=== PATIENT | male | born 1970 | race African-American/Black ===

== ENCOUNTER 2019-06-30 23:55 | Inpatient (IN) | payer OTHER ==
[2019-07-01 00:22] LABS: Hemoglobin 11.1 g/dL (14.0-18.0); Mean Corpuscular HGB CONC 32.8 g/dL (32.0-36.0); Mean Corpuscular Hemoglobin 30.7 pg (27.0-31.0); Mean Corpuscular Volume 93.8 fL (78.0-98.0); Mean Platelet Volume 8.7 fL (7.4-10.4); Platelet Count 244 thou/uL (130-400); RBC Distribution Width 11.6 % (11.5-14.5); Red Blood Cell (RBC) Count 3.62 mill/uL (4.70-6.10); White Blood Cell (WBC) Count 23.1 thou/uL (4.8-10.8)
[2019-07-01 00:30] LABS: INR-International Normal Ratio 1.1; Prothrombin Time 14.2 SEC (12.0-14.7)
[2019-07-01 00:36] LABS: PTT 22.5 SEC (22.9-36.1)
[2019-07-01 00:39] LABS: Band 7 % (5-11); Lymphocytes 14 % (21-51); MDiff Complete? YES; Monocytes 8 % (0-10); Neutrophil 71 % (42-75)
[2019-07-01 00:44] LABS: ALT (SGPT) 142 U/L (8-55); AST (SGOT) 111 U/L (5-34); Albumin 3.2 g/dL (3.5-5.0); Alkaline Phosphatase 277 U/L (40-150); Anion Gap 17 mmol/L (10-20); BUN (Urea Nitrogen) 22 mg/dL (8.9-20.6); Bilirubin, Total 8.1 mg/dL (0.2-1.2); Calc. Creatinine Clearance 0 mL/min (70-130); Calcium 8.8 mg/dL (7.8-10.44); Carbon Dioxide 19 mmol/L (22-29); Chloride 104 mmol/L (98-107); Estimated GFR-MDRD 57; Globulin 2.8 g/dL (2.4-3.5); Glucose 153 mg/dL (70-105); Potassium 3.6 mmol/L (3.5-5.1); Sodium 136 mmol/L (136-145)
[2019-07-01] MEDS ORDERED: Ondansetron PF 4 MG/2 ML Vial IVP PRN (04:19)
[2019-07-01] MEDS ORDERED: Sodium Chloride 0.9% 1,000 ML IV SCH ×2 (04:19→20:15)
[2019-07-01] MEDS ORDERED: Ondansetron ODT 4 MG TAB PO PRN (04:19)
[2019-07-01 04:34] VITALS: BMI 18.5
[2019-07-01] MEDS: HYDROcodone/Acetaminophen 5/325 mg Tablet PO PRN (04:53)
[2019-07-01] MEDS: Nicotine 14 MG PATCH TD SCH (04:55)
[2019-07-01] MEDS: Piperacillin/Tazobactam 3.375 GM in Sodium Chloride 0.9% 100 ML IVPB SCH ×2 (04:55→12:34)
--- NOTE | 2019-07-01 05:12 | HP ---
PRIMARY CARE DOCTOR: The patient currently does not have a primary care doctor. CHIEF COMPLAINT: Rectal bleeding. HISTORY OF PRESENT ILLNESS: Mr. Chamberlain is a pleasant 48-year-old gentleman, who has no known past medical history. He says that he has been having pain in his rectal area for the past 7 to 8 months. He says he notices it more when he has a bowel movement. He also noted just on a few occasions he had some bright red blood per rectum. However, on today, he says that he had a bowel movement and then started bleeding heavily, he says, from his rectum. He also noted a couple of clots. This was concerning for him. Therefore, he went to the [facility] in [place]. There, they did a rectal exam and felt a mass, and he was transferred here for further evaluation. The patient denies any fevers or chills. He says that he has vomited off and on, but denies any hematemesis. He occasionally will have some diarrhea, and off and on will have some abdominal pain, but this started just about 2 to 3 days ago, and it is primarily in the mid to lower abdomen, and it is dull, and it does not seem to be precipitated by anything in particular. The patient was evaluated here and was found to have an elevated white blood cell count. His hemoglobin was slightly low at 11.1, and it was noted that his liver tests were elevated, and he is being admitted. REVIEW OF SYSTEMS: CONSTITUTIONAL: He denies any fevers or chills. No night sweats. No weight loss. HEENT: He denies any headaches. No dizziness. No visual changes. No sore throat. No rhinorrhea, neck pain. No adenopathy. PULMONARY: No hemoptysis. No cough. No wheezing. CARDIOVASCULAR: He denies any chest pain. No shortness of breath. No PND. No orthopnea. GASTROINTESTINAL: As the history of present illness. GENITOURINARY: No urinary frequency or hematuria. No hesitancy. MUSCULOSKELETAL: No muscle pains, weakness, or joint pains. NEUROLOGIC: No focal weakness or numbness. No seizures. PSYCHIATRIC: No symptoms of anxiety or depression. SKIN AND INTEGUMENT: No skin changes. No rash. PAST MEDICAL HISTORY: Negative. PAST SURGICAL HISTORY: He said he had an eye surgery. ALLERGIES: NO KNOWN DRUG ALLERGIES. SOCIAL HISTORY: He is . He smokes about half a pack of cigarettes a day for the last 20 years. He denies any alcohol use. No drug use. He does not have any children. He did mention that his is HIV positive. FAMILY HISTORY: No history of any heritable diseases. CURRENT MEDICATIONS: None. PHYSICAL EXAMINATION: GENERAL: He is alert and oriented. He does appear chronically ill in appearance. He is relatively thin. VITAL SIGNS: Blood pressure is 117/79, heart rate 101, respiratory rate of 22, and temperature is 97.5. HEENT: Pupils are equal, round, and reactive. Extraocular muscles are intact. His sclerae are anicteric. Throat; no erythema, no exudates. NECK: No adenopathy. No bruits. LUNGS: He has some wheezing bilaterally and occasional rhonchi. No rales. CARDIOVASCULAR: He has a normal S1, S2. I did not appreciate an S3 or S4. No murmurs, clicks, or rubs. ABDOMEN: Soft. It is nontender and nondistended. No rebound or guarding. No organomegaly. EXTREMITIES: There is no clubbing or cyanosis, no edema. No joint effusions. NEUROLOGIC: Muscle strength is 5/5 in both his upper and lower extremities. SKIN AND INTEGUMENT: There are no skin changes, no rash. LABORATORY RESULTS: Sodium 136, potassium 3.6, chloride is 104, CO2 is 19, BUN of 22, creatinine 1.56, glucose is 153. White blood cell count is 23.1, hemoglobin 11.1, hematocrit is 33.9, platelet count is 244. INR is 1.1. He has a CT scan of the abdomen and pelvis, which is pending. ASSESSMENT: This is a pleasant 48-year-old gentleman who presents with rectal bleeding. He was found to have a rectal mass, which is concerning for malignancy. He also has a history of a who is human immunodeficiency virus positive. He says he was tested about 2 years ago and was reported to be negative, but has not been checked since then. He is therefore at high risk of converting to human immunodeficiency virus-positive status. 1. With regard to the rectal bleeding, it appears as if the bleeding has stopped. We will consult GI for possible colonoscopy and hopefully biopsy. We will continue to trend his H and Hs and place him on a proton pump inhibitor as a precaution. We will also get a CEA and alpha-fetoprotein level. It appears he has increased liver function tests concerning for possible hepatic metastasis. 2. Leukocytosis and elevated lactic acid. While he does fit the criteria for sepsis, we will place him on Zosyn empirically and obtain cultures if these have not yet been done. Currently, he does not give any signs of an acute abdomen, and again we are still awaiting the results of the CT scan report. 3. We will check a human immunodeficiency virus, and if positive, we will consult ID. Job ID: [id number]
[2019-07-01 05:49] LABS: HIV (1/2) Antibody/Antigen Non-Reactive (NonReactive); HIV 1/2 INDEX 0.07 S/CO (<1.00)
--- NOTE | 2019-07-01 08:06 | CT ---
PRELIMINARY REPORT/[facility]/EMERGENCY AFTER HOURS PROCEDURE: EXAM: CT Abdomen and Pelvis With Contrast EXAM DATE/TIME: 07/01/2019 12:24 AM CLINICAL HISTORY: 48 years old, male; Patient HX: M50, patient presents to er , xfer from [place] for rectal bleeding th at started earlier in the evening. PT reports rectal pain for 5-7 months TECHNIQUE: Imaging protocol: Computed tomography of the abdomen and pelvis with intravenous contrast. COMPARISON: No relevant prior studies available. FINDINGS: Lungs: Noncalcified 18 x 16 mm nodule right lower lobe. Liver: Numerous intermediate attenuation masses scattered throughout the liver consistent with metast atic disease, largest measuring 8.0 x 5.8 cm, lateral segment, left lobe. Gallbladder and bile ducts: Common bile duct dilated at 11 mm. Pancreas: No acute pathology. No ductal dilation. Spleen: No solid mass. No splenomegaly. Adrenals: 3.2 x 3.8 cm left adrenal mass, likely metastatic. Kidneys and ureters: Multifocal bilateral renal cortical scarring. Stomach and bowel: Suspected circumferential rectal wall thickening, suboptimally delineated without contrast. Appendix: No evidence of appendicitis. Intraperitoneal space: No free air. Vasculature: There are atheromatous changes of the abdominal aorta without aneurysm. Lymph nodes: No enlarged lymph nodes. Bladder: Unremarkable as visualized. Reproductive: Unremarkable as visualized. Bones/joints: Bilateral AVN changes of the hips, left > right, without collapse. No destructive lesio ns or acute fracture. Soft tissues: Unremarkable. IMPRESSION: Suspected circumferential rectal wall thickening, suboptimally delineated without contrast. Given his tory, findings may reflect rectal carcinoma. No mechanical obstruction. Numerous hepatic masses with left adrenal mass and right lung nodule. Findings likely reflective of metastatic disease. Thank you for allowing us to participate in the care of your patient. Dictated and Authenticated by: Michael Bergman MD 07/01/2019 12:51 AM Central Time ([place] & [place]) FINAL REPORT ABDOMEN AND PELVIC CT SCAN: EMERGENT AFTER HOURS EXAM TIME: 12:26 a.m. DATE: 07/01/2019. Evidence for abnormal rectal wall thickening concerning for malignancy. Multiple liver metastases up to 8 cm. Multiple pulmonary metastases up to 1.8 cm. Left adrenal metastasis up to 3.8 cm. 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 Dilated common bile duct up to 1.1 cm with mil dly distended gallbladder without overt gallstones or acute cholecystitis. This report is in agreement with the preliminary report. POS: RIVER
--- NOTE | 2019-07-01 12:06 | PDOC.HOSPP ---
- Subjective Encounter Date: 07/01/19 Subjective: rectal bleed continues but to a lesser extent, and less frequent, now it is mixed with stools. otherwise no other complaints. - Objective Vital Signs & Weight: Vital Signs (12 hours) Temp Pulse Resp BP Pulse Ox 07/01/19 08:52 97 07/01/19 08:00 97.4 F L 79 18 97/63 97 07/01/19 04:39 98 07/01/19 04:05 98.6 F 93 22 H 109/74 98 Weight Weight 129 lb Result Diagrams: 07/01/19 00:14 07/01/19 00:14 Hospitalist ROS - Medication Medications: Active Medications Generic Name Dose Route Start Last Admin Trade Name Freq PRN Reason Stop Dose Admin Hydrocodone Bitart/Acetaminophen 1 tab 07/01/19 04:19 07/01/19 04:53 [place] 5/325 PO 1 tab Q4H PRN Administration Moderate Pain (4-6) Nicotine 14 mg 07/01/19 06:00 07/01/19 04:55 Nicoderm Patch TD 14 mg Q24HR ESTEBAN Administration - Exam General Appearance: NAD, awake alert Eye: PERRL, anicteric sclera ENT: normocephalic atraumatic, no oropharyngeal lesions, moist mucosa Neck: supple, symmetric, no JVD, no thyromegaly, no lymphadenopathy, no carotid bruit Heart: RRR, no murmur, no gallops, no rubs, normal peripheral pulses Respiratory: CTAB, no wheezes, no rales, no ronchi, normal chest expansion, no tachypnea, normal percussion Gastrointestinal: soft, non-tender, non-distended, normal bowel sounds, no palpable masses, no hepatomegaly, no splenomegaly, no bruit Neurological: CN's grossly intact, normal sensation to touch, no weakness, no focal deficits, no new deficit Musculoskeletal: normal tone, normal strength, no muscle wasting Hosp A/P (1) Rectal cancer Code(s): C20 - MALIGNANT NEOPLASM OF RECTUM Status: Acute (2) GI bleed Code(s): K92.2 - GASTROINTESTINAL HEMORRHAGE, UNSPECIFIED Status: Acute (3) [place] (acute kidney injury) Code(s): N17.9 - ACUTE KIDNEY FAILURE, UNSPECIFIED Status: Acute (4) Metastasis Code(s): C79.9 - SECONDARY MALIGNANT NEOPLASM OF UNSPECIFIED SITE Status: Acute - Plan GI---rectal bleed ( he has been on NSAIDS at home and took ASA one week ago ) -- --awaiting GI input, untill then will continue with IVF and serial Hand H, transfuse if hgb less then 9 or signs of instability. The result of CT was notes , I do not think he needs to be on Zosyn, I will d/c this med. Onco---metastatic disease---will consult hem onc [place]---continue hydration and reassess in am. DVt px with SCD
[2019-07-01] MEDS ORDERED: ISOVUE-370 76%-LOCM 1 ML ONE (13:09)
[2019-07-01] MEDS: Sodium Chloride 0.9% 1,000 ML IV SCH ×2 (14:50→20:18)
[2019-07-01] MEDS ORDERED: GoLYTELY 4,000 ml Bottle PO SCH (18:00)
[2019-07-01 19:15] LABS: Hemoglobin 8.1 g/dL (14.0-18.0)
--- NOTE | 2019-07-01 20:05 | PDOC.EVN ---
Event Note - Event Note Event Note: Notified by RN, patient with Hb 8.1, undergoing light prep for colonoscopy to be done tmrw by Dr. Ellis. Patient has had 4 additional bloody BMs during the day, unable to control stools and soaked clothes/bed. Repeat vitals: BP 132/82, HR 118. Not lightheaded, dizzy or SOB. Dr. Akbar on his way to assess patient. Plan: 1L NS Bolus. Pantoprazole drip. [address] Ellis notified. For tele vs. IMCU, to be determined by Dr. Akbar following assessment.
[2019-07-01] MEDS: Pantoprazole 80 MG in Sodium Chloride 0.9% 100 ML IVPB SCH (21:02)
--- NOTE | 2019-07-01 22:41 | CON ---
DATE OF CONSULTATION: 07/01/2019 REASON FOR CONSULTATION: Hematochezia, rectal mass. CONSULTING PROVIDER: Amauri Boles MD HISTORY OF PRESENT ILLNESS: The patient is a 48-year-old gentleman with no known past medical history, presenting with complaints of hematochezia and rectal pain. He states that he has been having a change in his bowel habits that has been present for the last year, characterized as having alternating habits between constipation and diarrhea while having 1 bowel movement per day with increased straining in order to facilitate defecation. With the increased strain that he would exert, sometimes it would be associated with hematochezia that was generally associated with bright red blood present only on the toilet paper not in the toilet itself. However, over the last 7 to 8 months, he also endorses increased rectal pain in roughly the anal orifices and just to right of midline, characterized as a burning type pain, nonradiating and would reach a severity of 8/10. This pain would be worse with having a bowel movement and sitting down for prolonged periods of time, better only with taking ibuprofen 200 mg b.i.d. However, last night, the patient did have a larger bloody bowel movement that was associated with the stool at that time, but with a degree of bleeding, it prompted him to seek healthcare assistance at [facility] ER. While in the ER, he was noted to have hematochezia, but upon rectal examination, did have a palpable mass concerning for rectal malignancy. Along with the above symptoms, he also endorsed increased intermittent nausea and vomiting with nonbloody emesis and a weight loss of approximately 8 pounds over the last 2 to 3 months unintentionally. He currently denies any fevers, chills, hematemesis, melena, dysphagia, or odynophagia. He has never had a colonoscopy before. REVIEW OF SYSTEMS: A 10-category review of systems was obtained with all responses negative except for the pertinent positives as listed in HPI. PAST MEDICAL HISTORY: As per HPI. PAST SURGICAL HISTORY: Eye surgery. FAMILY HISTORY: Denies any GI malignancies. SOCIAL HISTORY: Smokes about 1/2 pack per day for the last 20 years, but denies any alcohol or illicit drug use. OUTPATIENT MEDICATIONS: None. ALLERGIES: NO KNOWN DRUG ALLERGIES. PHYSICAL EXAMINATION: VITAL SIGNS: Temperature 99.2, pulse 92, blood pressure 101/66, respiratory rate 20, saturating 99% on room air. GENERAL: The patient was lying in bed, in no acute distress. Alert and oriented x4. HEENT: Normocephalic, atraumatic. NECK: Supple. No JVD or scleral icterus noted. CARDIOVASCULAR: Regular rate and rhythm with no discernible murmurs, gallops, or rubs. RESPIRATORY: Clear to auscultation bilaterally with no discernible wheezes or rales. ABDOMEN: Normoactive bowel sounds. Soft, nontender, nondistended, but with mild guarding in the midepigastric region. EXTREMITIES: No cyanosis, clubbing, or edema. LABORATORY DATA: CBC with a white blood cell count of 23.1, hemoglobin 11.1, hematocrit 33.9, platelets 244. INR 1.1. Chemistry with a sodium of 136, potassium 3.6, chloride 104, CO2 of 19, BUN 22, creatinine 1.56, glucose 153. AST 111, ALT 142, alkaline phosphatase 277, total bilirubin 8.1, CEA 66.2. HIV nonreactive. IMAGING DATA: CT of the abdomen and pelvis was obtained on July 01, 2019, which showed a noncalcified 18 x 16 mm nodule in the right lower lobe concerning for metastatic spread. Numerous intermediate attenuation masses were scattered throughout the liver consistent with metastatic disease with the largest measuring 8 x 5.8 cm within the lateral segment of the left lobe. The common bile duct did show some dilation to 11 mm in size. There was also a 3.2 x 3.8 cm left adrenal mass, likely a metastatic process and suspected circumferential rectal wall thickening was also seen concerning for a neoplastic process. ASSESSMENT AND PLAN: The patient is a 48-year-old male with no significant past medical history, presenting with labs and imaging concerning for metastatic disease with a rectal cancer primary malignancy. Metastatic disease/rectal mass: The patient is presenting with a change in his bowel habits that has been occurring over the last year in addition to hematochezia and rectal pain that has been present for the last 7 to 8 months. On evaluation in the [place] ER, he was noted to have significant lesions consistent with metastatic disease within the lungs, liver and adrenal glands. Based on the imaging and his labs, he also has findings that may be consistent of biliary compression or obstruction and may require further intervention during this hospitalization. Given his carcinoembryonic antigen elevated, the likelihood of a rectal cancer is high at this time. RECOMMENDATIONS: 1. We will place the patient on a clear liquid diet today with n.p.o. at midnight in preparation for colonoscopy tomorrow. 2. We would continue to trend CBC and LFTs for signs of biliary compression and/or cholangitis. If he does exhibit evidence of biliary obstruction, he will need an urgent ERCP and may still need one for stent placement and biliary decompression given the amount of metastatic disease. 3. We would continue to trend his H and H and transfuse as necessary to maintain an H and H of 7/. 4. Continue to monitor clinically for signs of active GI bleeding. 5. We will consider consultation of the oncology service after colonoscopy tomorrow for further recommendations and/or treatment options. 6. I would have a low threshold to restarting the patient on Zosyn given the signs of possible biliary compression/obstruction. We will continue to follow. Please call with any questions. Job ID: [id number]
[2019-07-01 23:21] LABS: Hemoglobin 8.6 g/dL (14.0-18.0)
[2019-07-02 05:09] LABS: #Eosinphils 0.1 thou/uL (0.0-0.7); #Lymphocytes 1.9 thou/uL (1.20-3.40); #Monocytes 1.2 thou/uL (0.11-0.59); #Neutrophils 10.5 thou/uL (1.40-6.50); %Basophils 0.2 % (0.0-1.0); %Eosinophils 0.5 % (0.0-10.0); %Lymphocytes 13.9 % (21.0-51.0); %Monocytes 8.8 % (0.0-10.0); %Neutrophils 76.6 % (42.0-75.0); Hemoglobin 8.9 g/dL (14.0-18.0); Mean Corpuscular HGB CONC 34.3 g/dL (32.0-36.0); Mean Corpuscular Hemoglobin 31.6 pg (27.0-31.0); Mean Corpuscular Volume 92.1 fL (78.0-98.0); Mean Platelet Volume 8.8 fL (7.4-10.4); Platelet Count 179 thou/uL (130-400); RBC Distribution Width 12.4 % (11.5-14.5); White Blood Cell (WBC) Count 13.6 thou/uL (4.8-10.8)
[2019-07-02] MEDS: Sodium Chloride 0.9% 1,000 ML IV SCH ×2 (05:34→17:28)
[2019-07-02 05:35] LABS: ALT (SGPT) 96 U/L (8-55); AST (SGOT) 102 U/L (5-34); Albumin 2.9 g/dL (3.5-5.0); Alkaline Phosphatase 202 U/L (40-150); Anion Gap 10 mmol/L (10-20); BUN (Urea Nitrogen) 12 mg/dL (8.9-20.6); Bilirubin, Total 6.7 mg/dL (0.2-1.2); Calc. Creatinine Clearance 88 mL/min (70-130); Calcium 7.9 mg/dL (7.8-10.44); Carbon Dioxide 20 mmol/L (22-29); Chloride 110 mmol/L (98-107); Estimated GFR-MDRD Greater than 90; Globulin 2.2 g/dL (2.4-3.5); Glucose 77 mg/dL (70-105); Potassium 3.7 mmol/L (3.5-5.1); Protein, Total 5.1 g/dL (6.0-8.3); Sodium 136 mmol/L (136-145)
[2019-07-02] MEDS: Nicotine 14 MG PATCH TD SCH (05:41)
[2019-07-02] MEDS: Acetaminophen 325 MG TAB PO PRN (05:56)
[2019-07-02 06:55] LABS: Hemoglobin 8.6 g/dL (14.0-18.0)
[2019-07-02] MEDS: Pantoprazole 80 MG in Sodium Chloride 0.9% 100 ML IVPB SCH (07:10)
--- NOTE | 2019-07-02 12:38 | PDOC.HOSPP ---
- Subjective Encounter Date: 07/02/19 Subjective: feels nervous because of the colonoscopy. had some more bleeding yesterday night, but he states that it is less then before, he just moved his bowels and I did not see any blood. - Objective Vital Signs & Weight: Vital Signs (12 hours) Temp Pulse Pulse Resp BP BP Pulse Ox 07/02/19 11:20 98.8 F 89 16 125/80 100 07/02/19 07:15 98.9 F 91 18 112/65 97 07/02/19 05:49 99.4 F 90 18 128/70 98 07/02/19 04:00 99.9 F H 94 18 124/79 97 07/02/19 02:15 99.0 F 86 18 122/76 98 Weight Admit Weight 129 lb Weight 129 lb I&O: 07/01/19 07/02/19 07/03/19 06:59 06:59 06:59 Intake Total 5981 Output Total 3000 Balance 2981 Result Diagrams: 07/02/19 06:42 07/02/19 04:27 Hospitalist ROS - Medication Medications: Active Medications Generic Name Dose Route Start Last Admin Trade Name Freq PRN Reason Stop Dose Admin Acetaminophen 650 mg 07/01/19 04:19 07/02/19 05:56 Tylenol PO 650 mg Q4H PRN Administration Headache/Fever/Mild Pain (1-3) Hydrocodone Bitart/Acetaminophen 1 tab 07/01/19 04:19 07/01/19 04:53 [place] 5/325 PO 1 tab Q4H PRN Administration Moderate Pain (4-6) Sodium Chloride 1,000 mls @ 125 mls/hr 07/01/19 12:03 07/02/19 05:34 Normal Saline 0.9% IV 1,000 mls .Q8H ESTEBAN Administration Pantoprazole Sodium 80 mg/ 100 mls @ 10 mls/hr 07/01/19 20:15 07/02/19 07:10 Sodium Chloride IVPB 100 mls INF ESTEBAN Administration Nicotine 14 mg 07/01/19 06:00 07/02/19 05:41 Nicoderm Patch TD 14 mg Q24HR ESTEBAN Administration - Exam Eye: PERRL, anicteric sclera ENT: normocephalic atraumatic, no oropharyngeal lesions, moist mucosa Neck: supple, symmetric, no JVD, no thyromegaly, no lymphadenopathy, no carotid bruit Heart: RRR, no murmur, no gallops, no rubs, normal peripheral pulses Respiratory: CTAB, no wheezes, no rales, no ronchi, normal chest expansion, no tachypnea, normal percussion Gastrointestinal: soft, non-tender, non-distended, normal bowel sounds, no palpable masses, no hepatomegaly, no splenomegaly, no bruit Musculoskeletal: normal tone, normal strength, no muscle wasting Hosp A/P (1) Rectal cancer Code(s): C20 - MALIGNANT NEOPLASM OF RECTUM Status: Acute (2) GI bleed Code(s): K92.2 - GASTROINTESTINAL HEMORRHAGE, UNSPECIFIED Status: Acute (3) [place] (acute kidney injury) Code(s): N17.9 - ACUTE KIDNEY FAILURE, UNSPECIFIED Status: Acute (4) Metastasis Code(s): C79.9 - SECONDARY MALIGNANT NEOPLASM OF UNSPECIFIED SITE Status: Acute - Plan GI---rectal bleed ( he has been on NSAIDS at home and took ASA one week ago ) -- --going for colonoscopy ---bleeding seems to have decreased--overnight events noted. Onco---metastatic disease---consulted hem onc [place]---continue hydration seems to be improving. DVt px with SCD
[2019-07-02 12:43] LABS: Hemoglobin 9.5 g/dL (14.0-18.0)
[2019-07-02] MEDS ORDERED: Lidocaine 1% PF 5 ML VIAL ONE (17:49)
[2019-07-02] MEDS ORDERED: PROPOFOL 200 MG/20 ML VIAL ONE (17:49)
[2019-07-02] MEDS ORDERED: Promethazine HCl 25 MG/ML VIAL IM PRN (18:22)
[2019-07-02] MEDS ORDERED: PACU-Morphine 4MG/ML VIAL SLOW IVP PRN (18:22)
[2019-07-02] MEDS ORDERED: Ondansetron HCl/PF 4 MG/2 ML Vial IVP PRN (18:22)
[2019-07-02] MEDS ORDERED: HYDROmorphone 2 MG/ML VIAL SLOW IVP PRN (18:22)
[2019-07-02] MEDS ORDERED: Promethazine HCl 25 MG/ML VIAL SLOW IVP PRN (18:22)
[2019-07-02] MEDS ORDERED: Fentanyl 100 MCG/2 ML VIAL ONE (18:57)
--- NOTE | 2019-07-03 01:38 | OP ---
DATE OF PROCEDURE: 07/02/2019 PROCEDURES PERFORMED: Colonoscopy with biopsy. PREOPERATIVE DIAGNOSIS: Abnormal CT scan of the abdomen and pelvis and abnormal digital rectal exam showing a rectal mass and abdominal pain and rectal pain. DESCRIPTION OF PROCEDURE: Informed consent was obtained from the patient. He was sedated with total intravenous anesthesia. The rectal exam was performed and revealed a rectal mass palpable. The colonoscope was advanced to the rectum, which revealed a circumferential near obstructing mass in the rectum. The colonoscope could be advanced beyond this and then on up to the cecum, where the ileocecal valve and appendiceal orifice were clearly identified. The preparation quality was fair. There was thick white liquid in the right colon consistent with prior imaging contrast. This produced some blur on the lens. There were no large lesions in the right colon or transverse colon. There were a couple of diminutive polyps left alone in the transverse colon and sigmoid colon. There was diverticulosis in the right colon and left colon. Biopsies were obtained from the rectal mass. IMPRESSION: 1. Large rectal mass from 5 cm from the anal verge to 10 cm to the anal verge. The mass was circumferential and ulcerated. This is near obstructing. The colonoscope could be passed through the mass up to the cecum. 2. Mild diverticulosis of the right colon and sigmoid colon. 3. Otherwise unremarkable colonoscopy. RECOMMENDATIONS: 1. Await histopathology. 2. Await oncology recommendations. 3. Given the evidence of advanced metastatic disease by imaging and elevated liver tests, his treatment options are likely limited. Job ID: [id number]
[2019-07-03 05:34] LABS: #Basophils 0.1 thou/uL (0.0-0.2); #Eosinphils 0.1 thou/uL (0.0-0.7); #Lymphocytes 1.4 thou/uL (1.20-3.40); #Monocytes 1.3 thou/uL (0.11-0.59); #Neutrophils 8.6 thou/uL (1.40-6.50); %Basophils 0.5 % (0.0-1.0); %Eosinophils 0.5 % (0.0-10.0); %Lymphocytes 12.4 % (21.0-51.0); %Monocytes 11.1 % (0.0-10.0); %Neutrophils 75.5 % (42.0-75.0); Mean Corpuscular HGB CONC 34.4 g/dL (32.0-36.0); Mean Corpuscular Hemoglobin 31.8 pg (27.0-31.0); Mean Corpuscular Volume 92.3 fL (78.0-98.0); Mean Platelet Volume 8.5 fL (7.4-10.4); Platelet Count 189 thou/uL (130-400); RBC Distribution Width 12.3 % (11.5-14.5); Red Blood Cell (RBC) Count 2.51 mill/uL (4.70-6.10); White Blood Cell (WBC) Count 11.4 thou/uL (4.8-10.8)
[2019-07-03 05:43] LABS: Anion Gap 11 mmol/L (10-20); BUN (Urea Nitrogen) 11 mg/dL (8.9-20.6); Calc. Creatinine Clearance 87 mL/min (70-130); Calcium 7.7 mg/dL (7.8-10.44); Carbon Dioxide 19 mmol/L (22-29); Chloride 109 mmol/L (98-107); Estimated GFR-MDRD Greater than 90; Glucose 101 mg/dL (70-105); Potassium 3.8 mmol/L (3.5-5.1); Sodium 135 mmol/L (136-145)
[2019-07-03] MEDS: Nicotine 14 MG PATCH TD SCH ×2 (05:57→21:04)
[2019-07-03] MEDS: Sodium Chloride 0.9% 1,000 ML IV SCH ×2 (05:58→21:06)
[2019-07-03] MEDS: Acetaminophen 325 MG TAB PO PRN (05:58)
[2019-07-03] MEDS ORDERED: CEFAZOLIN 2 GM in Premix Bag 1 BAG IVPB SCH (11:30)
[2019-07-03] MEDS: HYDROcodone/Acetaminophen 5/325 mg Tablet PO PRN ×2 (12:33→21:03)
--- NOTE | 2019-07-03 12:36 | CON ---
DATE OF CONSULTATION: HISTORY OF PRESENT ILLNESS: Vito Chamberlain is a 48-year-old black male with several month history of rectal pain and bleeding. He finally came to the emergency room and was noted to have a hemoglobin of 8. He is admitted to the hospitalist service. The patient has seen Dr. Rashid Bailey on consultation, underwent a colonoscopy, noting a rectal mass 5 to 10 cm from the anal verge. He was able to place the scope beyond it and see throughout the colon to the cecum. Biopsies are pending. Imaging reveals multiple hepatic metastases up to 8 cm. The patient reports negative family history for colon cancer or rectal cancer. Oncology has seen him and discussed with him chemotherapy and radiation therapy. Radiation therapy does decrease the size of the tumor to prevent obstruction. I have told him that if he does have problems with obstructive symptoms in the future, consideration for colostomy could be given. He has received 2 units of blood this hospitalization. The patient's heart rate is normal. Blood pressure normal. ALLERGIES: NONE. SOCIAL HISTORY: Tobacco, half pack a day. Alcohol, rarely. MEDICATIONS: None routinely. PAST SURGICAL HISTORY: Eye surgery. PAST MEDICAL HISTORY: Noncontributory. The patient has been employed doing odd jobs in the past. He is not employed currently. REVIEW OF SYSTEMS: Ten-point noncontributory. PHYSICAL EXAMINATION: VITAL SIGNS: Height 5 feet 10 inches, 129 pounds, 18 BMI. Temperature 99 degrees and blood pressure 113/71. LUNGS: Clear to auscultation. CARDIAC: Regular rate and rhythm without murmur or gallop. ABDOMEN: Soft. Fullness in his upper abdomen. EXTREMITIES: Unremarkable. RECTAL: Not performed. LABORATORY DATA: CEA level 66, BUN 11, and creatinine 0.84. CT scan, multiple hepatic metastases. ASSESSMENT: Metastatic rectal cancer. PLAN: MediPort placement tomorrow, about noon. Risks and benefits and procedure explained to the patient. Questions answered. Job ID: [id number]
--- NOTE | 2019-07-03 14:15 | PQF ---
CLINICAL DOCUMENTATION IMPROVEMENT CLARIFICATION FORM: ICD-10 Updated PLEASE DO AN ADDENDUM TO THE PROGRESS NOTE WITH ANY DOCUMENTATION UPDATES OR ADDITIONS AND CARRY THROUGH TO DC SUMMARY. THANK YOU. DATE: 07/03/19 ATTN: DR. KRAUSE Please exercise your independent, professional judgment in responding to the clarification form. Clinical indicators are provided on the bottom of this form for your review Please check appropriate box(s) to clarify if the following diagnosis has been ruled in or ruled out: "SEPSIS" [ ] Ruled in diagnosis [ ] Continue to treat [ ] Resolved [ ] Ruled out diagnosis [ y ] Cannot rule out diagnosis [ ] Other diagnosis [ ] Unable to determine In addition, please specify: Present on Admission (POA): [ ] Yes [ ] No [ ] Unable to determine For continuity of documentation, please document condition throughout progress notes and discharge summary. Thank You. CLINICAL INDICATORS - SIGNS / SYMPTOMS / LABS H&P 07/01: "WHILE HE DOES FIT THE CRITERIA FOR SEPSIS, WE WILL PLACE HIM ON ZOSYN EMPIRICALLY AND OBTAIN CULTURES IF THESE HAVE NOT YET BEEN DONE" PULSE 135 RR 22 WBC 07/01: 23.1 LACTIC ACID 07/01: 3.2 RISKS: [place] (PROGRESS NOTE 07/02) POSSIBLE RECTAL CA (PROGRESS NOTE 07/02) TREATMENT: IV FLUIDS (ER-PRESENT) SERIAL LABS BLOOD CULTURES (07/01) IV ANCEF (07/03) [employer] Win[employer] (This form is maintained as a part of the permanent medical record) 2014 [employer]. All Rights Reserved TEO [email or web address] Office: [phone] [facility] HOSPITALFortino
--- NOTE | 2019-07-03 14:20 | PDOC.HOSPP ---
- Subjective Encounter Date: 07/03/19 Subjective: feeling better today - Objective Vital Signs & Weight: Vital Signs (12 hours) Temp Pulse Resp BP Pulse Ox 07/03/19 12:00 98.4 F 88 20 120/75 94 L 07/03/19 07:43 99.0 F 90 22 H 113/71 96 07/03/19 04:00 99.9 F H 106 H 18 117/86 100 Weight Admit Weight 129 lb Weight 129 lb I&O: 07/02/19 07/03/19 07/04/19 06:59 06:59 06:59 Intake Total 5981 1780 Output Total 3000 Balance 2981 1780 Result Diagrams: 07/03/19 04:41 07/03/19 04:41 Hospitalist ROS - Medication Medications: Active Medications Generic Name Dose Route Start Last Admin Trade Name Freq PRN Reason Stop Dose Admin Acetaminophen 650 mg 07/01/19 04:19 07/03/19 05:58 Tylenol PO 650 mg Q4H PRN Administration Headache/Fever/Mild Pain (1-3) Hydrocodone Bitart/Acetaminophen 1 tab 07/01/19 04:19 07/03/19 12:33 [place] 5/325 PO 1 tab Q4H PRN Administration Moderate Pain (4-6) Nicotine 14 mg 07/01/19 06:00 07/03/19 05:57 Nicoderm Patch TD 14 mg Q24HR ESTEBAN Administration Pantoprazole Sodium 40 mg 07/03/19 09:00 07/03/19 09:42 Protonix PO 40 mg DAILY ESTEBAN Administration - Exam Respiratory: no wheezes (slight decrease of air entry more so on the left then the right) Hosp A/P (1) Rectal cancer Code(s): C20 - MALIGNANT NEOPLASM OF RECTUM Status: Acute (2) GI bleed Code(s): K92.2 - GASTROINTESTINAL HEMORRHAGE, UNSPECIFIED Status: Acute (3) [place] (acute kidney injury) Code(s): N17.9 - ACUTE KIDNEY FAILURE, UNSPECIFIED Status: Acute (4) Metastasis Code(s): C79.9 - SECONDARY MALIGNANT NEOPLASM OF UNSPECIFIED SITE Status: Acute - Plan GI---rectal bleed ( he has been on NSAIDS at home and took ASA one week ago ) -- --rectal mass on colonoscopy ---bleeding has stopped--his temp is a bit up, I will restart him on Zosyn since there was a concern that he will develop cholangitis due to neoplastic compression. Onco---metastatic disease---consulted hem onc---port to be inserted in am in preparation for chemo. ORVILLE---resolved DVt px with SCD
--- NOTE | 2019-07-03 14:20 | PQF ---
CLINICAL DOCUMENTATION IMPROVEMENT CLARIFICATION FORM: ICD-10 Updated PLEASE DO AN ADDENDUM TO THE PROGRESS NOTE WITH ANY DOCUMENTATION UPDATES OR ADDITIONS AND CARRY THROUGH TO DC SUMMARY. THANK YOU. DATE: 07/03/19 ATTN: DR. KRAUSE Please exercise your independent, professional judgment in responding to the clarification form. Clinical indicators are provided on the bottom of this form for your review Please check appropriate box(s): [ y ] Acute blood loss anemia [ ] Anemia: [ ] Aplastic [ ] Nutritional [ ] Drug induced (specify) ___ [ ] Hemolytic [ ] Hereditary [ ] Acquired [ ] Autoimmune [ ] Non-autoimmune [ ] Enzyme disorder [ ] Chronic Anemia: [ ] Blood loss [ ] Hemolytic [ ] Simple [ ] Due to Vitamin B12 Deficiency [ ] Other [ ] Anemia of Chronic Disease (please specify) [ y ] Anemia due to Neoplasm: [ ] Primary [ ] Secondary [ ] Other diagnosis [ ] Unable to determine In addition, please specify: Present on Admission (POA): [ ] Yes [ ] No [ ] Unable to determine For continuity of documentation, please document condition throughout progress notes and discharge summary. Thank You. CLINICAL INDICATORS - SIGNS / SYMPTOMS / LABS HGN 07/01: 11.1 HGN /: 8.1 RISKS: RECTAL BLEEDING TREATMENT: SERIAL LABS GI CONSULT ONCOLOGY CONSULT BLOOD TRANSFUSION (ORDERED 07/01) (This form is maintained as a part of the permanent medical record) 2014 [employer]. All Rights Reserved TEO [email or web address] Office: [phone] [facility]
--- NOTE | 2019-07-03 14:29 | PQF ---
CLINICAL DOCUMENTATION IMPROVEMENT CLARIFICATION FORM: ICD-10 Updated PLEASE DO AN ADDENDUM TO THE PROGRESS NOTE WITH ANY DOCUMENTATION UPDATES OR ADDITIONS AND CARRY THROUGH TO DC SUMMARY. THANK YOU. Date: 07/03/19 ATTN: DR. KRAUSE Please exercise your independent, professional judgment in responding to the clarification form. Clinical indicators are provided on the bottom of this form for your review Please check appropriate box(s): [ y ] Protein Calorie Malnutrition: [ ] Mild [ ] Moderate [ y ] Severe [ ] Other Malnutrition (please specify) __ [ ] Underweight without malnutrition [ ] Cachexia [ ] Other diagnosis [ ] Unable to determine In addition, please specify: Present on Admission (POA): [ ] Yes [ ] No [ y ] Unable to determine CLINICAL INDICATORS - SIGNS / SYMPTOMS / LABS DIETARY NOTE 07/01: "UBW :140 LB; ....LESS THAN USUAL APPETITE X 1 MONTH. LAST PO INTAKE WAS YESTERDAY" "PATIENT IS THIN WITH MILD TEMPORALIS MUSCLE WASTING." "CALORIE AND PROTEIN NEEDS NOT MET" BMI 18.5 ALBUMIN 07/02: 2.9 RISKS: GI BLEEDING POSSIBLE MALIGNANCY TREATMENT: DIETARY CONSULT GI CONSULT NUTRITIONAL SUPPLEMENTS (ORDERED 07/03) Moderate Malnutrition (in acute illness) Energy Intake: <75% of estimated energy requirement for > 7 days Weight Loss: 1-2%/1 week; 5%/ 1 month; 7.5%/3 months Other: mild body fat loss; mild muscle mass loss; mild fluid accumulation; Severe Malnutrition (in acute illness) Energy Intake: < 50% of estimated energy requirement for > 5 days Weight Loss: >1-2%/1 week; >5%/1 month; >7.5%/3 months Other: moderate body fat loss; moderate muscle mass loss; moderate- severe fluid accumulation; measurably reduced gauger delivery strength Moderate Malnutrition (in chronic illness) Energy Intake: <75% of estimated energy requirement for >1 month Weight Loss: 5%/1 month; 7.5%/3 months; 10%/6 months; 20%/1 year Other: mild body fat loss; mild muscle mass loss; mild fluid accumulation Severe Malnutrition (in chronic illness) Energy Intake: <75% of estimated energy requirement for >1 month Weight Loss: >5%/1 month; >7.5%/3 months; >10%/6 months; >20%/1 year Other: severe body fat loss; severe muscle mass loss; severe fluid accumulation ; measurably reduced gauger delivery strength (This form is maintained as a part of the permanent medical record) 2014 [employer]. All Rights Reserved TEO [email or web address] Office: [phone] [facility]
--- NOTE | 2019-07-03 14:31 | CON ---
DATE OF CONSULTATION: REASON FOR CONSULT: Rectal mass. HISTORY OF PRESENT ILLNESS: Mr. Chamberlain is a 48-year-old gentleman, who presented to the emergency room with a 7- to 8-month history of rectal pain and he has had intermittent bright red blood per rectum. He underwent an abdomen and pelvis CT scan, which showed a right lower lobe nodule, an 8 x 5.8 cm hepatic lesion, a 3.2 x 3.8 cm left adrenal mass, and a circumferential rectal wall thickening. He then underwent a colonoscopy, which showed a large rectal mass, 5 cm to 10 cm to the anal verge, it was ulcerated. Biopsies were taken and are currently pending. The patient states his bleeding has improved significantly. He has had a bowel movement this morning. No family history of rectal cancer. Does have a history of smoking. His CEA is elevated at 66.22. He also has an elevated bilirubin of 6.7. PAST MEDICAL HISTORY: None. PAST SURGICAL HISTORY: Eye surgery in the past. ALLERGIES: NO KNOWN DRUG ALLERGIES. HOME MEDICATIONS: None. FAMILY HISTORY: No history of rectal cancer. SOCIAL HISTORY: . is HIV positive. Half pack cigarettes for last 20 years. No alcohol or illicit drug use. REVIEW OF SYSTEMS: A 10-point review of systems is negative. PHYSICAL EXAMINATION: VITAL SIGNS: Temperature is 99, pulse is 90, respiratory rate 22, BP is 113/71. He is 96% on room air. GENERAL: Well-developed, well-nourished male, in no acute distress. Appears older than his stated age. HEENT: Pupils are equal and reactive to light. His sclerae are icteric. NECK: Supple. CV: Regular rate and rhythm. LUNGS: Clear. ABDOMEN: Soft and nontender. Bowel sounds are positive. EXTREMITIES: No clubbing, cyanosis, or edema. SKIN: No rash. HEMATOLOGIC: No petechiae or purpura. NEUROLOGIC: Nonfocal. PERTINENT LABS AND X-RAYS: Current WBCs are 11.4, hemoglobin 8.0, hematocrit 23.2, platelet count is 189,000, 75% neutrophils, 12% lymphocytes. PT is 14.2, INR is 1.1, and PTT is 22.5. Sodium is 135, potassium 3.8, chloride 109, CO2 is 19, BUN is 11, creatinine is 0.84, calcium is 7.7, bilirubin is 6.7, AST is 102, ALT is 96, alkaline phosphatase is 202. Serum total protein 5.1, albumin 2.9, globulin 2.2. AFP is 3.6. CEA is 66.22. HIV is negative. Radiology, per HPI. ASSESSMENT: Large circumferential rectal mass with liver and adrenal metastases. Path pending. DISCUSSION: The patient likely has stage 4 rectal adenocarcinoma. He is currently not obstructed and had a bowel movement this morning. We will continue stool softener, MiraLAX, and laxative. Keep his stool soft. He is taking Antelope for pain. He will need a MediPort for chemotherapy. Dr. Garnica has been consulted and plans to do it tomorrow, after which he can be discharged home. His tissue will be sent for mutation studies. He can follow up in the clinic to discuss treatment options. All of this was explained to the patient and his family, who are in agreement. Thank you for the consult. Job ID: [id number]
[2019-07-03] MEDS: Piperacillin/Tazobactam 3.375 GM in Sodium Chloride 0.9% 100 ML IVPB SCH (17:27)
--- NOTE | 2019-07-03 22:59 | PRG ---
DATE OF SERVICE: 07/03/2019 REASON FOR CONSULTATION: Abnormal GI imaging, rectal mass. SUBJECTIVE: The patient underwent a colonoscopy yesterday with findings of a large circumferential rectal mass seen at approximately 5-10 cm past the anal verge, but was traversed with the standard colonoscope and able to achieve cecal intubation. Since the procedure, the patient states that his hematochezia has subsided with no further episodes of hematochezia, but no bowel movement since the colonoscopy as well. He has been able to tolerate a diet without difficulty and currently denies any further rectal pain. Currently, he denies any nausea, vomiting, fevers, chills, hematemesis, melena, dysphagia, or odynophagia. OBJECTIVE: VITAL SIGNS: Temperature 98.8, pulse 83, blood pressure 126/76, respiratory rate 23, saturating 96% on room air. GENERAL: The patient is lying in bed, in no acute distress. Alert and oriented x4. CARDIOVASCULAR: Regular rate and rhythm. RESPIRATORY: Clear to auscultation bilaterally. ABDOMEN: Normoactive bowel sounds. Soft, nontender, nondistended. EXTREMITIES: No cyanosis, clubbing, or edema. LABORATORY DATA: CBC with a white blood cell count of 11.4, hemoglobin 8, hematocrit 23.2, platelets 189. Chemistry with a sodium of 135, potassium 3.8, chloride 109, CO2 of 19, BUN 11, creatinine 0.84, glucose 101. IMAGING DATA: Colonoscopy performed on 07/02/2019, showed a large rectal mass from 5-7 cm past the anal verge that was circumferential and ulcerated. This lesion was biopsied and pathology specimens pending at this time. Mild diverticulosis was seen in the right colon and sigmoid colon with no other mass lesions or polyps seen during this examination. ASSESSMENT AND PLAN: The patient is a 48-year-old male with no significant past medical history, presenting with labs, imaging, and now colonoscopy consistent with metastatic disease with a rectal cancer primary malignancy. Rectal malignancy/metastatic disease: The patient initially presented with a longstanding history of rectal pain and hematochezia that have been present for at least the last 7 to 8 months. With labs and imaging obtained on admission, it was strongly suggestive of a colonic malignancy. Colonoscopy performed on 07/02/2019, showed a large circumferential rectal mass at approximately 5-10 cm past the anal verge, making this most likely etiology as the evidence of metastatic disease seen on imaging. Given his elevated CEA level, again a rectal malignancy is consistent with the current clinical picture. He has been evaluated by the Oncology Service with plans for MediPort placement and chemotherapy as an outpatient. With the extensive metastatic disease within the liver, disruption of the ductal system is likely and could contribute to a picture of possible biliary obstruction. However, review of his most recent labs showed downtrending LFTs, which could be indicative of response to current clinical management. Given his extensive disease and ERCP with stent placement, may prove fruitless given the compression/destruction of the intrahepatic biliary tree. RECOMMENDATIONS: 1. We will continue to trend his CBC and LFTs daily for continued bleeding and/or possible biliary obstruction, respectively. ERCP with stent placement is not necessarily indicated at this time given his downtrending LFTs. 2. We will continue to trend his H and H and transfuse as necessary to maintain H and H of 7/21. 3. Continue to monitor for signs of active GI bleeding. 4. Agree with the Oncology Service and that this patient's best chance is for chemotherapy, although given his elevated bilirubin, may be somewhat limited in terms of options. 5. If the patient's LFTs are downtrending tomorrow, the patient could be considered for discharge after MediPort placement and follow up in the Oncology Clinic for chemotherapy. We will continue to follow. Please call with any questions. Job ID: [id number]
[2019-07-04] MEDS: Piperacillin/Tazobactam 3.375 GM in Sodium Chloride 0.9% 100 ML IVPB SCH ×5 (01:08→23:08)
[2019-07-04 06:22] LABS: #Eosinphils 0.1 thou/uL (0.0-0.7); #Lymphocytes 1.5 thou/uL (1.20-3.40); #Neutrophils 8.7 thou/uL (1.40-6.50); %Basophils 0.3 % (0.0-1.0); %Eosinophils 1.2 % (0.0-10.0); %Lymphocytes 12.9 % (21.0-51.0); %Monocytes 9.1 % (0.0-10.0); %Neutrophils 76.6 % (42.0-75.0); Hemoglobin 7.5 g/dL (14.0-18.0); Mean Corpuscular HGB CONC 34.4 g/dL (32.0-36.0); Mean Corpuscular Hemoglobin 32.1 pg (27.0-31.0); Mean Corpuscular Volume 93.2 fL (78.0-98.0); Mean Platelet Volume 8.5 fL (7.4-10.4); Platelet Count 213 thou/uL (130-400); RBC Distribution Width 12.3 % (11.5-14.5); Red Blood Cell (RBC) Count 2.33 mill/uL (4.70-6.10); White Blood Cell (WBC) Count 11.4 thou/uL (4.8-10.8)
[2019-07-04 06:33] LABS: ALT (SGPT) 68 U/L (8-55); AST (SGOT) 66 U/L (5-34); Albumin 2.5 g/dL (3.5-5.0); Alkaline Phosphatase 168 U/L (40-150); Anion Gap 8 mmol/L (10-20); BUN (Urea Nitrogen) 7 mg/dL (8.9-20.6); Bilirubin, Total 6.1 mg/dL (0.2-1.2); Calc. Creatinine Clearance 91 mL/min (70-130); Calcium 7.8 mg/dL (7.8-10.44); Carbon Dioxide 23 mmol/L (22-29); Chloride 108 mmol/L (98-107); Estimated GFR-MDRD Greater than 90; Globulin 2.3 g/dL (2.4-3.5); Glucose 95 mg/dL (70-105); Potassium 3.6 mmol/L (3.5-5.1); Protein, Total 4.8 g/dL (6.0-8.3); Sodium 135 mmol/L (136-145)
--- NOTE | 2019-07-04 11:37 | PDOC.MOPN ---
Interval History: Feels tired today. - Vital Signs Vital Signs: Vital Signs (12 hours) Temp Pulse Resp BP Pulse Ox 07/04/19 11:06 98.8 F 83 18 134/85 98 07/04/19 07:23 99.5 F 86 17 121/75 96 07/04/19 03:40 99.3 F 89 20 126/73 96 Weight Admit Weight 129 lb Weight 133 lb 8 oz - Physical Exam General: Alert, Oriented x3, No acute distress HEENT: Atraumatic, PERRLA, EOMI, Mucous membr. moist/pink Lungs: Clear to auscultation, Normal air movement Cardiovascular: Regular rate, Normal S1, Normal S2, No murmurs, Gallops, Rubs Abdomen: Other Extremities: No clubbing, No cyanosis, No edema, Normal pulses, No tenderness/ swelling Skin: No breakdown Neurological: Normal speech Psych/Mental Status: Mental status NL - Labs Result Diagrams: 07/04/19 05:24 07/04/19 05:24 Lab results: Laboratory Results - last 24 hr 07/04/19 05:24: WBC 11.4 H, RBC 2.33 L, Hgb 7.5 L, Hct 21.7 L, MCV 93.2, MCH 32.1 H, MCHC 34.4, RDW 12.3, Plt Count 213, MPV 8.5, Neutrophils % 76.6 H, Lymphocytes % 12.9 L, Monocytes % 9.1, Eosinophils % 1.2, Basophils % 0.3, Neutrophils # 8.7 H, Lymphocytes # 1.5, Monocytes # 1.0 H, Eosinophils # 0.1, Basophils # 0.0 07/04/19 05:24: Sodium 135 L, Potassium 3.6, Chloride 108 H, Carbon Dioxide 23, Anion Gap 8 L, BUN 7 L, Creatinine 0.83, Estimated GFR (MDRD) Greater than 90, Glucose 95, Calcium 7.8, Total Bilirubin 6.1 H, AST 66 H, ALT 68 H, Alkaline Phosphatase 168 H, Serum Total Protein 4.8 L, Albumin 2.5 L, Globulin 2.3 L, Albumin/Globulin Ratio 1.1 L Status: lab reviewed by me A/P - Problem (1) Metastasis Current Visit: Yes Code(s): C79.9 - SECONDARY MALIGNANT NEOPLASM OF UNSPECIFIED SITE Status: Acute (2) Rectal cancer Current Visit: Yes Code(s): C20 - MALIGNANT NEOPLASM OF RECTUM Status: Acute - Plan Plan: Plan for mediport and possible discharge today Patient needs Medical Oncology follow-up with provider that takes his insurance. Will sign-off
--- NOTE | 2019-07-04 12:15 | PDOC.HOSPP ---
- Subjective Encounter Date: 07/04/19 Subjective: feels good, awaiting port insertion still have loose stools - Objective Vital Signs & Weight: Vital Signs (12 hours) Temp Pulse Resp BP Pulse Ox 07/04/19 11:06 98.8 F 83 18 134/85 98 07/04/19 07:23 99.5 F 86 17 121/75 96 07/04/19 03:40 99.3 F 89 20 126/73 96 Weight Admit Weight 129 lb Weight 133 lb 8 oz I&O: 07/03/19 07/04/19 07/05/19 06:59 06:59 06:59 Intake Total 1780 1200 Balance 1780 1200 Result Diagrams: 07/05/19 06:33 07/05/19 06:33 Hospitalist ROS - Medication Medications: Active Medications Generic Name Dose Route Start Last Admin Trade Name Freq PRN Reason Stop Dose Admin Acetaminophen 650 mg 07/01/19 04:19 07/03/19 05:58 Tylenol PO 650 mg Q4H PRN Administration Headache/Fever/Mild Pain (1-3) Hydrocodone Bitart/Acetaminophen 1 tab 07/01/19 04:19 07/03/19 21:03 [place] 5/325 PO 1 tab Q4H PRN Administration Moderate Pain (4-6) Sodium Chloride 1,000 mls @ 100 mls/hr 07/04/19 08:00 07/03/19 21:06 Normal Saline 0.9% IV 1,000 mls .Q10H ESTEBAN Administration Piperacillin Sod/Tazobactam 100 mls @ 200 mls/hr 07/03/19 18:00 07/04/19 11: 58 Sod 3.375 gm/ Sodium Chloride IVPB 100 mls Q6HR ESTEBAN Administration Pantoprazole Sodium 40 mg 07/03/19 09:00 07/04/19 08:37 Protonix PO 40 mg DAILY ESTEBAN Administration - Exam General Appearance: NAD, awake alert Eye: PERRL, anicteric sclera ENT: normocephalic atraumatic, no oropharyngeal lesions, moist mucosa Neck: supple, symmetric, no JVD, no thyromegaly, no lymphadenopathy, no carotid bruit Heart: RRR, no murmur, no gallops, no rubs, normal peripheral pulses Respiratory: CTAB, no wheezes, no rales, no ronchi, normal chest expansion, no tachypnea, normal percussion Gastrointestinal: soft, non-tender, non-distended, normal bowel sounds, no palpable masses, no hepatomegaly, no splenomegaly, no bruit Extremities: no cyanosis, no clubbing, no edema Skin: normal turgor, no lesions, no rashes Hosp A/P (1) Rectal cancer Code(s): C20 - MALIGNANT NEOPLASM OF RECTUM Status: Acute (2) GI bleed Code(s): K92.2 - GASTROINTESTINAL HEMORRHAGE, UNSPECIFIED Status: Acute (3) [place] (acute kidney injury) Code(s): N17.9 - ACUTE KIDNEY FAILURE, UNSPECIFIED Status: Acute (4) Metastasis Code(s): C79.9 - SECONDARY MALIGNANT NEOPLASM OF UNSPECIFIED SITE Status: Acute - Plan GI---rectal bleed ( he has been on NSAIDS at home and took ASA one week ago ) -- --rectal mass on colonoscopy ---bleeding has stopped--his temp was a bit up yesterday , restarted him on Zosyn since there was a concern that he will develop cholangitis due to neoplastic compression but his LFTs are trending down. hgb dropped a bit, I would like to transfuse him in order to optimize him for discharge. He is anemic mainly due to his rectal bleed in the setting of neoplasia. Onco---metastatic disease---consulted hem onc---port to be inserted in am in preparation for chemo. ORVILLE---resolved DVt px with SCD Patient is severely malnourished and has a poor oral intake due to his underlying malignancy.
[2019-07-04] MEDS ORDERED: PROPOFOL 200 MG/20 ML VIAL ONE (12:59)
[2019-07-04] MEDS ORDERED: Bupivacaine HCl 0.5%/Epinephrine 1:200,000/PF 30 ml Vial ONE (16:14)
[2019-07-04] MEDS ORDERED: Lidocaine 2% PF 5 ML VIAL ONE (16:14)
[2019-07-04] MEDS ORDERED: Fentanyl 100 MCG/2 ML VIAL ONE ×2 (16:33→17:31)
[2019-07-04] MEDS ORDERED: Midazolam HCl 2 mg/2 ml Vial ONE (16:33)
--- NOTE | 2019-07-04 17:43 | RAD ---
Chest one view HISTORY: Mediport placement. FINDINGS: No comparison. Cardiac silhouette is magnified and upper limits of normal in size. Pulmonar y vasculature is unremarkable. Mediastinum is midline. Tip of a right subclavian Port-A-Cath projects over the superior vena cava. No evidence of pneumothorax. IMPRESSION: Right subclavian Port-A-Cath is in good radiographic position.
[2019-07-04] MEDS: Sodium Chloride 0.9% 1,000 ML IV SCH (18:14)
[2019-07-04] MEDS ORDERED: Nicotine 14 MG PATCH TD SCH (21:00)
[2019-07-04] MEDS: HYDROcodone/Acetaminophen 5/325 mg Tablet PO PRN (23:08)
[2019-07-05] MEDS: Sodium Chloride 0.9% 1,000 ML IV SCH ×2 (05:49→11:49)
[2019-07-05] MEDS: HYDROcodone/Acetaminophen 5/325 mg Tablet PO PRN (05:49)
[2019-07-05] MEDS: Piperacillin/Tazobactam 3.375 GM in Sodium Chloride 0.9% 100 ML IVPB SCH ×2 (05:49→11:54)
[2019-07-05 06:46] LABS: #Eosinphils 0.1 thou/uL (0.0-0.7); #Lymphocytes 1.6 thou/uL (1.20-3.40); #Monocytes 1.2 thou/uL (0.11-0.59); #Neutrophils 9.3 thou/uL (1.40-6.50); %Basophils 0.3 % (0.0-1.0); %Eosinophils 1.2 % (0.0-10.0); %Lymphocytes 13.1 % (21.0-51.0); %Neutrophils 75.4 % (42.0-75.0); Hemoglobin 9.1 g/dL (14.0-18.0); Mean Corpuscular HGB CONC 33.7 g/dL (32.0-36.0); Mean Corpuscular Hemoglobin 31.1 pg (27.0-31.0); Mean Corpuscular Volume 92.2 fL (78.0-98.0); Mean Platelet Volume 7.8 fL (7.4-10.4); Platelet Count 294 thou/uL (130-400); RBC Distribution Width 12.5 % (11.5-14.5); Red Blood Cell (RBC) Count 2.92 mill/uL (4.70-6.10); White Blood Cell (WBC) Count 12.4 thou/uL (4.8-10.8)
[2019-07-05 07:08] LABS: ALT (SGPT) 59 U/L (8-55); AST (SGOT) 55 U/L (5-34); Albumin 2.6 g/dL (3.5-5.0); Alkaline Phosphatase 216 U/L (40-150); Anion Gap 11 mmol/L (10-20); BUN (Urea Nitrogen) 7 mg/dL (8.9-20.6); Bilirubin, Total 8.3 mg/dL (0.2-1.2); Calc. Creatinine Clearance 96 mL/min (70-130); Calcium 7.9 mg/dL (7.8-10.44); Carbon Dioxide 22 mmol/L (22-29); Chloride 107 mmol/L (98-107); Estimated GFR-MDRD Greater than 90; Globulin 2.6 g/dL (2.4-3.5); Glucose 81 mg/dL (70-105); Potassium 3.7 mmol/L (3.5-5.1); Protein, Total 5.2 g/dL (6.0-8.3); Sodium 136 mmol/L (136-145)
[2019-07-05 11:43] VITALS: BP 128/81; TEMP 98.3
--- NOTE | 2019-07-06 04:13 | DIS ---
DATE OF ADMISSION: 07/01/2019 DATE OF DISCHARGE: 07/05/2019 HISTORY OF PRESENT ILLNESS: This is a 48-year-old male patient who was admitted on 07/01/2019 for rectal bleeding that he has been having for the past 8 months. On the day of his presentation, he was bleeding heavily, which was concerning for him, hence he presented to the emergency room and on rectal examination, it was felt that he has a mass. He did have some leukocytosis and he was started on Zosyn empirically. During his stay, he was transfused with PRBC. He remained stable. He underwent a colonoscopy and was diagnosed with large circumferential rectal mass, 5-10 cm past the anal verge. A CT of the abdomen and pelvis that was obtained on admission showed numerous intermediate attenuation masses scattered through the liver consistent with metastatic disease. His common bile duct showed some dilatation and adrenal mass was seen as well. He was subsequently seen by Oncology, their impression that he had stage IV rectal adenocarcinoma. He had a MediPort inserted and the recommendation is to send him home to follow with Oncology as an outpatient. Today, patient complains of some pain around the site of the MediPort, otherwise has no other complaints. He is able to eat and get some caloric intake. PHYSICAL EXAMINATION: VITAL SIGNS: Have been stable. He has been afebrile, temperature is 98.3 and he is saturating 98% on room air. His blood pressure is 128/81. HEENT: Head is nontraumatic, normocephalic. Pupils equal and reactive. Extraocular movements are intact. Nonicteric sclerae. Well injected conjunctivae. Oral mucosa normal. Nasal mucosa normal. NECK: Supple. No adenopathy. No murmur. Thyroid is not palpable. Trachea is midline. No supraclavicular lymphadenopathy. HEART: S1, S2 regular. ABDOMEN: Bowel sounds are positive. Nontender abdomen. EXTREMITIES: No lower extremity edema. No cyanosis. LABORATORY DATA: Blood work showed sodium 136, potassium 3.7, and creatinine 0.81. Total bilirubin 8.3; AST 55, which has been down trending since his admission; ALT is 59, down trending as well; alkaline phosphatase 216. WBC of 12.4, hemoglobin 9.1 post 1 unit of PRBC given yesterday. ASSESSMENT AND PLAN: This is a 48-year-old male patient who presented with worsening of his rectal bleed that started 5 months ago. He was found to have a rectal mass consistent with adenocarcinoma with metastasis to the liver and to the adrenal gland. He did have increased LFTs, but they are down trending showing that there is no major obstruction of his common biliary duct. He has been afebrile. He has been on Zosyn. We will send him on 5 days of Augmentin. Also, we will provide him with Tylenol No. 3 for his pain control. He is advised not to use aspirin, not to use NSAIDs and to come back to the ER if he develops fever and to follow with Oncology as an outpatient. Patient verbalized understanding. More than half an hour was spent to discharge this patient. Job ID: [id number]
== END 2019-07-05 14:34 | disposition home or self-care (01) | DRG 374 ==
LOC: ERS 23:55 → T4-B 07-01 02:20 → EEVIPCON 07-01 02:20 → 2NO 07-01 21:27
PROVIDERS: ADMIT Internal Medicine; ATTEND Internal Medicine
PROC: 30233N1 Transfusion of Nonautologous Red Blood Cells into Peripheral Vein, Percutaneous Approach (ICD-10-PCS; 2019-07-01)
PROC: 0DBP8ZX Excision of Rectum, Via Natural or Artificial Opening Endoscopic, Diagnostic (ICD-10-PCS; principal; 2019-07-02)
DX: C20 Malignant neoplasm of rectum (principal); E43 Unspecified severe protein-calorie malnutrition; A41.9 Sepsis, unspecified organism; C78.7 Secondary malignant neoplasm of liver and intrahepatic bile duct; C79.70 Secondary malignant neoplasm of unspecified adrenal gland; D62 Acute posthemorrhagic anemia; N17.9 Acute kidney failure, unspecified; K57.32 Diverticulitis of large intestine without perforation or abscess without bleeding; Z68.1 Body mass index [BMI] 19.9 or less, adult; F17.210 Nicotine dependence, cigarettes, uncomplicated
CPT/HCPCS: 36415; 36430; 71045; 74177; 80048; 80053; 82105; 82378; 83605; 85025; 85610; 85730; 86850; 86900; 86901; 87040; 87389; 88305; 93005; 96360; C1788; C9113; J0670; J0690; J1642; J2001; J2250; J2543; J2704; J3010; J3490; P9016; Q0162; Q9966

== ENCOUNTER 2019-08-07 14:27 | Inpatient (IN) | payer OTHER ==
[2019-08-07 15:30] LABS: Hemoglobin 8.8 g/dL (14.0-18.0); Mean Corpuscular HGB CONC 34.1 g/dL (32.0-36.0); Mean Corpuscular Hemoglobin 28.6 pg (27.0-31.0); Mean Platelet Volume 7.4 fL (7.4-10.4); Platelet Count 511 thou/uL (130-400); Red Blood Cell (RBC) Count 3.08 mill/uL (4.70-6.10)
[2019-08-07 15:46] LABS: Band 13 % (5-11); Lymphocytes 9 % (21-51); MDiff Complete? YES; Monocytes 2 % (0-10); Myelocyte 1 % (0-0); Neutrophil 75 % (42-75); Platelet Morphology Comment Appears Increased; Polychromasia SLIGHT = 2-3 cells (100X) (0-2/hpf); Target Cells SLIGHT = 2-5 cells (100X) (0-1/hpf)
[2019-08-07 16:14] LABS: AST (SGOT) 322 U/L (5-34); Anion Gap 20 mmol/L (10-20); BUN (Urea Nitrogen) 87 mg/dL (8.9-20.6); Calc. Creatinine Clearance 0 mL/min (70-130); Calcium 9.1 mg/dL (7.8-10.44); Carbon Dioxide 13 mmol/L (22-29); Chloride 105 mmol/L (98-107); Estimated GFR-MDRD 12
[2019-08-07 16:15] LABS: ALT (SGPT) 149 U/L (8-55); Albumin 2.8 g/dL (3.5-5.0); Alkaline Phosphatase 2186 U/L (40-110); Bilirubin, Total 37.4 mg/dL (0.2-1.2); Globulin 4.5 g/dL (2.4-3.5); Glucose 103 mg/dL (70-105); Potassium 4.3 mmol/L (3.5-5.1); Protein, Total 7.3 g/dL (6.0-8.3); Sodium 134 mmol/L (136-145)
--- NOTE | 2019-08-07 16:43 | RAD ---
Exam: Chest one view HISTORY:Weakness Comparison: 07/04/2019 FINDINGS: Lungs: Mild patchy opacity at the lateral left midlung zone Cardiac silhouette:Stable. Right chest port remains in place. Pulmonary vessels: Normal Pleural Spaces: Clear Pneumothorax: None Osseous abnormalities: None of acuity. IMPRESSION: Mild patchy opacification of lateral left midlung zone. Follow-up may be obtained with dedicated 2 vi ew chest for further evaluation.
[2019-08-07] MEDS ORDERED: Piperacillin/Tazobactam 2.25 GM VIAL ONE (17:56)
[2019-08-07 18:02] LABS: Bilirubin Large (Negative); Blood, Urine Moderate (Negative); Glucose, Urine (Dipstick) 100 mg/dL (Negative); Leukocyte Negative (Negative); Nitrite Negative (Negative); Protein, Urine (Dipstick) 100 mg/dL (Neg-Trace); Urobilinogen 0.2 mg/dL (Less than 2)
[2019-08-07 18:03] LABS: Clarity Cloudy (Clear)
[2019-08-07] MEDS ORDERED: Sodium Bicarbonate 150 MEQ in Dextrose 5% in Water 850 ML IV SCH (18:15)
--- NOTE | 2019-08-07 18:25 | CT ---
CT OF ABDOMEN AND PELVIS PERFORMED WITHOUT CONTRAST ENHANCEMENT: 08/07/19 HISTORY: Patient reportedly has a rectal mass and liver cancer. Now has developed elevated biliary. COMPARISON: The previous study of 07/01/19. Right middle and lower lobe pulmonary nodules are again demonstrated. Gunpowder to be relatively stable. Diffuse hepatic metastatic disease is seen. Also probably relatively stable as compared to the prior exam. There has been a significant degree of increase of obstruction of the biliary system. The commo n bile duct at the pancreatic head measures 2.2 cm. It is difficult to show a definite mass. There is some increased attenuation in the region of the ampullary region. I do not see a definite stone. Th ere may be some type of mass in this region. The gallbladder is mildly distended, fairly similar to w hat it appeared to be on the prior exam. The spleen is within normal limits of size. The right adrena l gland is normal in appearance. There is a left adrenal mass measuring approximately 4.5 cm. Small p eriaortic lymph nodes are noted. No significant mesenteric nodes are seen. There is some dilated smal l bowel loops to approximately the mid ileal level. Some fecalization of bowel contents. The more di stal small bowel loops are less dilated. Fullness in the region of the rectum is again demonstrated. An enlarged right inguinal lymph node measuring 2.9 cm in size is seen. Some other smaller inguinal nodes are present. There is what may be some adenopathy which is adjacent to the left side of the rec karen. This is very difficult to assess without oral or IV contrast. IMPRESSION: 1. Relatively stable appearance to pulmonary metastases and liver metastatic lesions. 2. Significant increase in the degree of intra and extrahepatic biliary ductal dilatation. Some increased attenuation is seen in the region of the ampullary region is seen which could represent yovani e type of soft tissue mass. No definite stone identified. 3. Left adrenal mass highly suspicious for metastatic disease. 4. Some mild dilatation of some of the mid ileal small bowel loops with fecalization of some of the bowel contents. This raises the possibility of some developing obstruction. 5. Rectal wall thickening and what may be adenopathy in the deep left pelvis adjacent to this ar ea of wall thickening. 6. 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 7. Findings telephoned to Dr. Edwards. POS: TPC
[2019-08-07 18:26] LABS: RBC/HPF 0-3 HPF (0-3); Squamous Epithelial 0-3 HPF (0-3); WBC/HPF 0-3 HPF (0-3)
[2019-08-07 18:27] LABS: Bacteria/HPF None Seen HPF (None Seen)
--- NOTE | 2019-08-07 19:23 | PDOC.FPRHP ---
- History of Present Illness Chief Complaint: Weakness History of Present Illness: Mr. Chamberlain is a 48 y/o male w/ a recent diagnosis of metastatic cancer, likely of GI origin, who presents to the ED for weakness. Although he is currently being followed by [facility], he seems to have poor insight into his medical diagnosis and was unable to provide much history. He states that he has recently experienced weight loss ~10 LBS and has experienced episodic constipation as well. He denies being in any pain right now, as well as N/V/D. - Allergies/Adverse Reactions Allergies Allergy/AdvReac Type Severity Reaction Status Date / Time No Known Allergies Allergy Verified 08/08/19 05:14 - Home Medications Medication Instructions Recorded Confirmed Type Docusate [Colace] 100 mg PO DAILY PRN 07/24/19 08/08/19 History Acetaminophen With Codeine 2 tablet PO Q8H PRN 08/08/19 08/08/19 History [Tylenol with Codeine #4] - History PMHx: Negative PSHx: Eye Surgery (Remote) FHx: Non-Contributory Social: Prior to cancer diagnosis, patient reported drinking 3-4 beers x3 weekly. He smokes cigarettes, 1/2 PPD, and denies any drug use. - Review of Systems General: reports: weight/appetite/sleep changes, fatigue. denies: fever/chills , night sweats Eyes: denies: eye pain, vision changes ENT: denies: nasal congestion Respiratory: denies: cough, congestion, shortness of breath, exercise intolerance Cardiovascular: denies: chest pain, edema Gastrointestinal: reports: constipation. denies: nausea, vomiting, diarrhea, abdominal pain, GI bleeding Genitourinary: denies: incontinence, dysuria, polyuria Skin: denies: rashes, lesions Musculoskeletal: denies: pain, stiffness, swelling Neurological: reports: weakness. denies: numbness, syncope Psychological: denies: anxiety, depression - Vital signs BP: [116/69] HR: [81] RR: [18] Tmax: [97.4] Pox: [98]% on [RA] Wt: [] - Physical Exam Constitutional: NAD, awake, alert and oriented, well developed, other (Cachectic ) HEENT: normocephalic and atraumatic, EOMI, grossly normal vision, grossly normal hearing, normal nasal mucosa, MMM, oropharynx clear, other (Pupils constricted w/ pronounced scleral icterus. Poor dentition.) Neck: supple, FROM, trachea midline, no LAD Chest: no-tender to palpation, no lesions Heart: RRR, normal S1/S2, no murmurs/rubs/gallops, pulses present, no edema Lungs: CTAB, no respiratory distress, no rales/rhonchi, no wheezing, no retractions, other (Poor air movement) Abdomen: soft, non-tender, no masses/distention, no hernias Musculoskeletal: normal structure, normal tone, ROM grossly normal Neurological: no focal deficit, normal sensation Skin: no rash/lesions, good turgor, capillary refill <2 seconds, other ( Jaundice under tongue and on palmar surfaces) Heme/Lymphatic: no purpura, no petechia Psychiatric: normal mood and affect, intact recent and remote memory FMR H&P: Results - Labs Result Diagrams: 08/08/19 05:30 08/08/19 05:30 Lab results: WBC 20.0 thou/uL (4.8-10.8) H 08/07/19 15:11 Hgb 8.8 g/dL (14.0-18.0) L 08/07/19 15:11 Hct 25.8 % (42.0-52.0) L 08/07/19 15:11 MCV 84.0 fL (78.0-98.0) 08/07/19 15:11 Plt Count 511 thou/uL (130-400) H 08/07/19 15:11 Band Neuts % (Manual) 13 % (5-11) H 08/07/19 15:11 Sodium 134 mmol/L (136-145) L 08/07/19 15:11 Potassium 4.3 mmol/L (3.5-5.1) 08/07/19 15:11 Chloride 105 mmol/L (98-107) 08/07/19 15:11 Carbon Dioxide 13 mmol/L (22-29) L 08/07/19 15:11 BUN 87 mg/dL (8.9-20.6) H 08/07/19 15:11 Creatinine 6.00 mg/dL (0.7-1.3) H 08/07/19 15:11 Glucose 103 mg/dL (70-105) 08/07/19 15:11 Lactic Acid 1.0 mmol/L (0.5-2.2) 08/07/19 16:15 Calcium 9.1 mg/dL (7.8-10.44) 08/07/19 15:11 Total Bilirubin 37.4 mg/dL (0.2-1.2) H 08/07/19 15:11 AST 322 U/L (5-34) H 08/07/19 15:11 ALT 149 U/L (8-55) H 08/07/19 15:11 Alkaline Phosphatase 2186 U/L (40-110) H 08/07/19 15:11 Creatine Kinase 92 U/L (30-200) 08/07/19 16:39 Serum Total Protein 7.3 g/dL (6.0-8.3) 08/07/19 15:11 Albumin 2.8 g/dL (3.5-5.0) L 08/07/19 15:11 Urine Ketones Negative mg/dL (Negative) 08/07/19 17:24 Urine Blood Moderate (Negative) A 08/07/19 17:24 Urine Nitrite Negative (Negative) 08/07/19 17:24 Ur Leukocyte Esterase Negative (Negative) 08/07/19 17:24 Urine RBC 0-3 HPF (0-3) 08/07/19 17:24 Urine WBC 0-3 HPF (0-3) 08/07/19 17:24 Ur Squamous Epith Cells 0-3 HPF (0-3) 08/07/19 17:24 Urine Bacteria None Seen HPF (None Seen) 08/07/19 17:24 FMR H&P: A/P - Problem List (1) Hepatorenal failure Current Visit: Yes Status: Acute Priority: High Code(s): K76.7 - HEPATORENAL SYNDROME (2) Cholangitis Current Visit: Yes Status: Suspected Code(s): K83.09 - OTHER CHOLANGITIS (3) Metastasis Current Visit: No Status: Acute Priority: High Code(s): C79.9 - SECONDARY MALIGNANT NEOPLASM OF UNSPECIFIED SITE - Plan 1. Hepatorenal Syndrome, suspected -Likely 2/2 to widely metastatic cancer -Review of historical lab values reveals considerable renal and hepatic deterioration -Cr: 6 -AST: 322 / ALT: 149 -Alk Phos: 2187 -Ammonia: TNP -UA: ++Blood, +++Bilirubin, ++Granular Casts, ++Broad Casts -Nephrology consulted, will evaluate on 08/08 -GI consulted, will evaluated on 08/08 -Pulmonology consulted, will evaluate on 08/08 -Case Management consulted, will evaluated on 08/08 - extensive conversation about Code Status and Palliative Care likely required 2. Renal Failure 2/2 ATN and Hepatorenal Syndrome -Nephro consulted- Dr. Knight- follow recs -Started on bicarb drip. Will trend labs -Possibly will get dialysis the next day. -Monitor Strict I&O's 3. Acute Cholangitis, possible -Patient referenced vague abdominal pain during evaluation, notably poor historian -Elevated AST, ALT, Alk Jolie, Ammonia levels concerning -Blood Culture: Pending -Urine Culture: Pending -ABD US: Pending -Empiric antibiotic therapy initiated with Vancomycin and Zosyn w/ Pharmacy to dose 4. Metastatic Cancer, likely of Rectal Adenocarcinoma -CXR: Mild opacification in left lung field -CT ABD/Pelvis: Suspicious masses noted in lungs, liver, adrenal glands, and colon -ABD US: Pending -Patient states that he is currently being followed by [facility] -Patient states that he desires paliative radiation therapy, likelihood of therapy appears unclear -Consider consulting Oncologist once immediate clinical condition improves Code Status: Full Code Diet: Heart Healthy w/ Low Sodium DVT PPx: SCDs Activity: Ad Ev Dispo: Patient admitted to IM for further evaluation. Likely diagnosis and subsequent prognosis of Hepatorenal Syndrome overwhelmingly poor. Awaiting further recommendations from multiple specialists. Additional conversations about goals of care likely required with patient and patient's family. Expected LOS > 48H. FMR H&P: Upper Level - Pertinent history I was present with the international trade teacher and scribed the above document. I made edits above as needed. - Pertinent findings Pt is juandiced. He is chacetic appearing. No ascites noted. Pt is not the best historian. Agree with above physical exam as I was present with international trade teacher. - Plan Date/Time: 08/07/191920 I, Julius Harmon PGY-3, have evaluated this patient and agree with findings/ plan as outlined by international trade teacher resident. Pertinent changes/additions are listed here. pt recently diagnosed with rectal adenocarcinoma with known metastasis to liver and lung. It appears that he may have metastasis to adrenal gland. Sent over by oncologist due to concern for renal failure. Based on labs he had done back on 07/24 in [place] pt appears to be in Liver failure and Hepatorenal Syndrome. INR elevated. Bili, AST/ALT elevated. There is concern for cholangitis as well based on CT findings. CT also shows worsening of intra and extrahepatic duct dilatation from CT on 07/01 which raises concern for Hepatorenal Syndrome. Cr 6 w/ GFR 12. These were completely normal a week ago. Pt UA aslo shows granular casts. Concern for ATN. Pt WBC 20. CO2 13. ABG pending. Started on bicarb drip by nephro. Started on vanc and zosyn for broad spectrum coverage for cholangitis or cholecystitis. Ordered Ab U/S. Will await results. Likely poor candidate for any intervention. Nephrology (Dr. Knight), Gastroenterology (Kandice) and Pulmonology (Gianna) all consulted. Will follow recs. Pt vital signs stable. Pt cognitive, A&Ox3. Pt has no real concerns. Pt very sick based on labs. Unable to check Ammonia as lab said Lactemia was interfering. Discussed prognosis with patient in depth. Discussed options at this time. Pt at this time elected to be Full Code. Will consult palliative care. disposition: Guarded DVT ppx: INR 2.8. No need for ppx. Addendum - Attending - Attending Attestation Date/Time: 08/08/191947 I personally evaluated the patient and discussed the management with Dr. Harmon at time of admission yesterday. See separate Attending note. I agree with the History, Examination, Assessment and Plan documented above with any addition or exceptions noted below.
[2019-08-07 21:12] LABS: INR-International Normal Ratio 2.8; Prothrombin Time 29.5 SEC (12.0-14.7)
[2019-08-07] MEDS ORDERED: Bisacodyl 5 MG TAB PO PRN (21:21)
--- NOTE | 2019-08-07 22:24 | PDOC.FM ---
- Objective Result Diagrams: 08/07/19 15:11 08/07/19 15:11 Addendum - Attending - Attending Attestation Date/Time: 08/07/192207 I personally evaluated the patient and discussed the management with Dr. Harmon at time of admission. I agree with the History, Examination, Assessment and Plan as discussed. H&P pending. Clinical picture supports the disagnosis of Hepatorenal syndrome with superimposed ATN. Exam does not suggest intrabdominal or pulmonary infection, however risk for SBP or biliary tract is high. Broad spectrum, empiric antibx started in ER. Since last admission he has developed acutely worsening renal disease, liver disease. Nephrology has Seen Mr Chamberlain. Dialysis will likely be needed. WE will further evaluate liver and gallbladder with ultrasound. Will discuss HRS treatment options with Nephro to coordinate care. Prognosis poor.
[2019-08-08 00:45] LABS: Actual Bicarbonate (HCO3a) 14.2 mEq/L (22-28); Analyzer IN Cardio ER; Base Excess (BEa) -10.7 mEq/L (-2.0 to +3.0); CO2 Tension 28.4 mmHg (35.0-45.0); Calcium, Ionized 1.05 mmol/L (1.12-1.30); Carboxyhemoglobin (COHb) 0.8 gm% (0.0-3.0); Hemoglobin (Hb) 9.1 g/dL (14.0-18.0); O2 Tension (PaO2) 85.5 mmHg (80.0-100.0); Potassium - ABG Lab 4.28 mmol/L (3.70-5.30); pH, Arterial 7.32 (7.35-7.45)
[2019-08-08 00:46] LABS: Puncture Site LRA
[2019-08-08] MEDS ORDERED: Piperacillin/Tazobactam 2.25 GM VIAL ONE (02:25)
[2019-08-08] MEDS: Piperacillin/Tazobactam 2.25 GM in Sodium Chloride 0.9% 100 ML IVPB SCH ×2 (05:12→17:19)
[2019-08-08] MEDS ORDERED: FLU VACC QS2019-20(6MOS UP)/PF 60 MCG/0.5 ML SYRINGE IM ONE ×2 (05:15→09:00)
[2019-08-08 06:05] LABS: ALT (SGPT) 122 U/L (8-55); AST (SGOT) 263 U/L (5-34); Albumin 2.4 g/dL (3.5-5.0); Alkaline Phosphatase 1776 U/L (40-110); Anion Gap 17 mmol/L (10-20); BUN (Urea Nitrogen) 90 mg/dL (8.9-20.6); BUN/Creatinine Ratio 16.01; Calc. Creatinine Clearance 12 mL/min (70-130); Calcium 8.1 mg/dL (7.8-10.44); Carbon Dioxide 18 mmol/L (22-29); Chloride 102 mmol/L (98-107); Estimated GFR-MDRD 13; Globulin 3.9 g/dL (2.4-3.5); Glucose 105 mg/dL (70-105); Phosphorus 5.8 mg/dL (2.3-4.7); Potassium 4.1 mmol/L (3.5-5.1); Protein, Total 6.3 g/dL (6.0-8.3); Sodium 133 mmol/L (136-145)
[2019-08-08 06:10] LABS: Band 2 % (5-11); Hemoglobin 8.1 g/dL (14.0-18.0); Hypochromia SLIGHT = 6-15 cells (100X) (0-5/hpf); Lymphocytes 7 % (21-51); MDiff Complete? YES; Mean Corpuscular HGB CONC 34.7 g/dL (32.0-36.0); Mean Corpuscular Hemoglobin 28.8 pg (27.0-31.0); Mean Corpuscular Volume 83.1 fL (78.0-98.0); Mean Platelet Volume 7.3 fL (7.4-10.4); Monocytes 4 % (0-10); Neutrophil 87 % (42-75); Platelet Count 472 thou/uL (130-400); Platelet Morphology Comment Appears Increased; RBC Distribution Width 16.2 % (11.5-14.5); Red Blood Cell (RBC) Count 2.81 mill/uL (4.70-6.10); White Blood Cell (WBC) Count 17.6 thou/uL (4.8-10.8)
[2019-08-08 06:11] LABS: Bilirubin, Total 31.5 mg/dL (0.2-1.2)
--- NOTE | 2019-08-08 06:52 | PDOC.FM ---
- Subjective Subjective: NAEO. Patient resting comfortably in bed. Complaining of being thirsty. No other complaints or concerns. Denies any abdominal pain, NVD. Endorses some rectal pain when lying supine for long periods of time. - Objective MAR Reviewed: Yes Vital Signs & Weight: Vital Signs (12 hours) Temp Pulse Ox 08/08/19 03:47 98.5 F 08/08/19 03:00 99.3 F 99 Weight Weight 53.6 kg Most Recent Monitor Data Heart Rate from ECG 81 NIBP 111/58 NIBP BP-Mean 75 Respiration from ECG 15 SpO2 100 I&O: 08/06/19 08/07/19 08/08/19 06:59 06:59 06:59 Intake Total 430 Output Total 175 Balance 255 Result Diagrams: 08/08/19 05:30 08/08/19 05:30 Phys Exam - Physical Examination Constitutional: NAD HEENT: moist MMs sclera icteric b/l Neck: supple, full ROM Respiratory: clear to auscultation bilateral Cardiovascular: RRR, no significant murmur, no rub Gastrointestinal: soft, no distention, positive bowel sounds mild TTP of RUQ Musculoskeletal: no edema, pulses present Neurological: non-focal, normal sensation, moves all 4 limbs Psychiatric: normal affect, A&O x 3 Skin: no rash, normal turgor, cap refill <2 seconds Dx/Plan (1) Hepatorenal failure Code(s): K76.7 - HEPATORENAL SYNDROME Status: Acute (2) Cholangitis Code(s): K83.09 - OTHER CHOLANGITIS Status: Suspected (3) ORVILLE (acute kidney injury) Code(s): N17.9 - ACUTE KIDNEY FAILURE, UNSPECIFIED Status: Acute (4) GI bleed Code(s): K92.2 - GASTROINTESTINAL HEMORRHAGE, UNSPECIFIED Status: Acute (5) Metastasis Code(s): C79.9 - SECONDARY MALIGNANT NEOPLASM OF UNSPECIFIED SITE Status: Acute (6) Rectal cancer Code(s): C20 - MALIGNANT NEOPLASM OF RECTUM Status: Acute - Plan Plan: Hepatorenal Syndrome, suspected Likely 2/2 to widely metastatic cancer. Review of historical lab values reveals considerable renal and hepatic deterioration. - Cr: 6; AST: 322 / ALT: 149; Alk Phos: 2187; Ammonia: TNP - GI, Pulmonology, nephro consulted, will evaluated on 08/08, appreciate recs - Case Management consulted, will evaluated on 08/08 - extensive conversation about Code Status and Palliative Care likely required Renal Failure 2/2 ATN and Hepatorenal Syndrome - Nephro consulted- Dr. Knight- follow recs - Started on bicarb drip. Will trend labs. - Possibly will get dialysis the next day. - Monitor Strict I&O's - patient has had output of 175mls this morning. Acute Cholangitis, possible - Patient referenced vague abdominal pain during evaluation, notably poor historian - Elevated AST, ALT, Alk Jolie, Ammonia levels concerning - BCX: prelim NGTD; Ucx pending - ABD US: showing evidence of cholelithiasis and cholecystitis. Dilated CBD. GI consulted, appreciated recommendations. - Empiric antibiotic therapy initiated with Vancomycin and Zosyn w/ Pharmacy to dose Metastatic Cancer, likely Rectal Adenocarcinoma CXR: Mild opacification in left lung field. CT ABD/Pelvis: Suspicious masses noted in lungs, liver, adrenal glands, and colon. - ABD US: see above - Patient states that he is currently being followed by [facility] - Patient states that he desires paliative radiation therapy, likelihood of therapy appears unclear - Consider consulting Oncologist once immediate clinical condition improves Code Status: Full Code Diet: Heart Healthy w/ Low Sodium DVT PPx: SCDs Activity: Ad Ev Dispo: Patient admitted to [facility] for further evaluation. Likely diagnosis and subsequent prognosis of Hepatorenal Syndrome overwhelmingly poor. Awaiting further recommendations from multiple specialists. Additional conversations about goals of care likely required with patient and patient's family. Expected LOS > 48H. Addendum - Attending - Attending Attestation Date/Time: 08/08/192031 I personally evaluated the patient and discussed the management with Dr. Anton I agree with the History, Examination, Assessment and Plan documented above with any addition or exceptions noted below- Patient denies any complaints. Afebrile VSS. A/P: 1) ORVILLE- appreciate nephrology assistance; continue IV hydration. 2) Obstructive jaundice- GI consulted. WIll await recommendations. 3 ) Metastatic rectal cancer- palliative consult.
--- NOTE | 2019-08-08 07:33 | PDOC.PULCN ---
Pulmonology Consult: HPI - Date of Consult Date: 08/08/19 Time: 07:00 - Consult Details Reason for Consult: Lab derangement in the presence of rectal adenocarcinoma Requesting Physician: Avi Cain MD - History of Present Illness HPI: FANNY TORRES is a 48 year-old M who presented to the ER following abnormal lab results at an outpt radiation clinic. He denies any other inciting incident other than these labs. Pt is a poor historian with limited understanding of his current condition. He does complain of rectal pain with prolonged supine position. He currently denies any shortness of breath, cough, dyspnea, chest pain, or abdominal pain. He does reports some abdominal pressure. Chart review reveals recent diagnosis of rectal adenocarcinoma with diffuse metastatic spread to his lung, liver, and kidneys. He has also appears to have significant anemia worsening in the last month. This pt is currently following up with [facility]. Pulmonology Consult: ROS - Review of Systems Constitutional: weakness. negative: fever, chills Cardiovascular: negative: chest pain, palpitations Respiratory: negative: bloody sputum, congestion, cough, chest soreness, chest tightness, pain on deep breathing, short of breath, blodd streaked sputum Pulmonology Consult: [facility] Source: patient, other (EMR) Past Medical History: Cataracts, alcohol abuse, tobacco abuse, rectal adenocarcinoma diagnosed June 2019 - Family History Family history: reviewed and not pertinent - Social History Smoking Status: Former smoker Alcohol Use: weekly (Has recently stopped following his diagnosis) Drug Use History: none Living Situation: with family/parents Pulmonology Consult: Meds - Medications MAR Reviewed: Yes Medications: Current Medications Bisacodyl (Dulcolax) 10 mg PO DAILYPRN PRN PRN Reason: Constipation Piperacillin Sod/Tazobactam (Sod 2.25 gm/ Sodium Chloride) 100 mls @ 200 mls/ hr IVPB 0200,1000,1800 ESTEBAN Last Admin: 08/08/19 05:12 Dose: Not Given Vancomycin HCl 500 mg/ Sodium (Chloride) 100 mls @ 100 mls/hr IVPB Q2D ESTEBAN Miscellaneous Medication (Pharmacy To Dose) 1 each IVPB PRN PRN PRN Reason: EMPIRICI Pneumococcal 13-Valent Conj Vacc (Prevnar) 0.5 ml IM .ONCE ONE Stop: 08/08/19 09:01 - Allergies Allergies/Adverse Reactions: Allergies Allergy/AdvReac Type Severity Reaction Status Date / Time No Known Allergies Allergy Verified 08/08/19 05:14 Pulmonology Consult: PE - Physical Exam Constitutional: NAD HEENT: PERRLA, moist MMs, oral pharynx no lesions Neck: no JVD Cardiovascular: RRR, no significant murmur, no rub Respiratory: clear to auscultation anteriorly, clear to auscultation bilaterally. negative: accessory muscle use, chest wall tenderness, decreased breath sounds Gastrointestinal: soft, non-tender, no distention, positive bowel sounds Deviation from normal: david rectal tenderness Musculoskeletal: no edema, pulses present Deviation from normal: Right sided hip tenderness Neurological: moves all 4 limbs Psychiatric: A&O x 3 Skin: cap refill <2 seconds Pulmonology Consult: Results - Labs Result Diagrams: 08/12/19 04:27 08/12/19 04:27 - ABG Interpretation Attestation: I reviewed and interpreted this ABG. ABG Results: ABG pH 7.32 (7.35-7.45) L 08/08/19 00:41 ABG pCO2 28.4 mmHg (35.0-45.0) L 08/08/19 00:41 ABG O2 Sat Calc/Sean 95.6 % (94.0-98.0) 08/08/19 00:41 ABG Base Excess -10.7 mEq/L (-2.0 to +3.0) L 08/08/19 00:41 Interpretation: metabolic acidosis - Radiology Interpretation Chest x-ray Status: image reviewed by me, report reviewed by me (No acute intrathoracic disease) CT scan - abdomen Status: image reviewed by me, report reviewed by me (Abdomen and pelvis 1. Relatively stable appearance to pulmonary metastases and liver metastatic lesions. 2. Significant increase in the degree of intra and extrahepatic biliary ductal dilatation. Some increased attenuation is seen in the region of the ampullary region is seen which could represent some type of soft tissue mass. No definite stone identified. 3. Left adrenal mass highly suspicious for metastatic disease. 4. Some mild dilatation of some of the mid ileal small bowel loops with fecalization of some of the bowel contents. This raises the possibility of some developing obstruction. 5. Rectal wall thickening and what may be adenopathy in the deep left pelvis adjacent to this area of wall thickening. 6. 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 of avascular necrosis of both hips.) Pulmonology Consult: A/P - Problem (1) Hepatorenal failure Current Visit: Yes Code(s): K76.7 - HEPATORENAL SYNDROME Status: Acute (2) Cholangitis Current Visit: Yes Code(s): K83.09 - OTHER CHOLANGITIS Status: Suspected (3) ORVIL[place] (acute kidney injury) Current Visit: No Code(s): N17.9 - ACUTE KIDNEY FAILURE, UNSPECIFIED Status : Acute (4) GI bleed Current Visit: No Code(s): K92.2 - GASTROINTESTINAL HEMORRHAGE, UNSPECIFIED Status: Acute (5) Metastasis Current Visit: No Code(s): C79.9 - SECONDARY MALIGNANT NEOPLASM OF UNSPECIFIED SITE Status: Acute (6) Rectal cancer Current Visit: No Code(s): C20 - MALIGNANT NEOPLASM OF RECTUM Status: Acute - Time Time: 50% of the time was spent in coordination of care (as documented) at patient's floor/unit and/or counseling patient. Time with Patient: greater than 70 minutes - Plan Plan: Hepatorenal syndrome -Prophylactic abx -Pt counselled extensively on the importance of avoiding alcohol -Likely needs his CBD dilation addressed to fix this issue, GI consulted Acute renal failure likely 2/2 pre-renal vs hepatorenal syndrome -Nephrology consulted, will provide supportive care -Fluid bolus and maintenance fluids onboard Metastatic cancer, likely rectal adenocarcinoma -Palliative, GI, CM, and oncology consulted -Likely no pulmonary interventions for this pt at this time Hypercoagulability -INR 2.8 -Giving vitamin K now, will give repeat dose in the morning Anemia -Will monitor, Hgb at 8.1 at this time -Transfusion threshold of Hgb less than 7 Common bile duct obstruction -Consult GI -Prophylactic abx for gut avinash Pt looks better than his numbers. We will follow him while he is in the [facility] Duc Vieyra DO PGY2 Addendum - Attending - Attending Attestation Date/Time: 08/12/19 1419 I personally evaluated the patient and discussed the management with Dr. Barrett. I agree with the History, Examination, Assessment and Plan documented above with any addition or exceptions noted below. 70 minutes have been devoted to this patient in various activities. I personally reviewed all imaging studies and laboratory data noted within this document. For fifty percent of this time, I was interacting with the patient at the bedside or coordinating care with the care team. For the remainder of the time I was immediately available to the patient in the hospital unit.
--- NOTE | 2019-08-08 08:23 | ULT ---
ABDOMEN ULTRASOUND: HISTORY: Evaluate for cholangitis. COMPARISON: None. CORRELATION: Abdomen and pelvic CT 08/07/2019. FINDINGS: Visualized aorta is unremarkable. Limited evaluation of the pancreas. Pancreatic duct appears to be 0.4 cm. Heterogeneous echotexture of the liver. Discrete hepatic masses are not appreciated. There is hepat omegaly, with the right hepatic lobe measuring 20 cm. There is marked intrahepatic biliary dilatatio n. There is a markedly distended gallbladder full of stones and sludge. There is pericholecystic fluid. Gallbladder wall is thickened measuring 0.38 cm. Positive Morrison's sign. Common bile duct diameter is 2.5 cm. No sonographic evidence of choledocholithiasis. Kidneys have a normal cortical echotexture. The right kidney measures 12.3 x 4.5 x 4.9 cm. The left kidney measur es 11.2 x 6.1 x 5.2 cm. Mild lobulation of the left renal contour. No evidence of left-sided hydron ephrosis. Minimal dilatation of the right renal pelvis. Spleen is unremarkable, measuring 12.4 cm. IMPRESSION: 1. Sonographic evidence of cholelithiasis and cholecystitis. 2. Marked dilatation of the common bile duct. The possibility of choledocholithiasis cannot be excl uded on the current examination. Correlation made with CT from 08/07/2019 does show a soft tissue mas s in the ampulla, incompletely evaluated. POS: RIVER
[2019-08-08] MEDS ORDERED: Prevnar 13-Val Conj/PF 0.5 ML SYRINGE IM ONE (09:00)
[2019-08-08] MEDS ORDERED: Lactated Ringer's 1,000 ML IV SCH (09:30)
--- NOTE | 2019-08-08 10:01 | CON ---
DATE OF CONSULTATION: HISTORY OF PRESENT ILLNESS: Mr. Chamberlain is a 48-year-old black male with known history of metastatic cancer and admitted for an acute kidney injury. He was found to have volume depletion. He has a significant weight loss of about 10 pounds. Exam today shows that the patient may be volume depleted. He was started on isotonic bicarbonate due to the metabolic acidosis. REVIEW OF SYSTEMS: Decreased appetite. Decreased energy level. No overt nausea or vomiting. No diarrhea. No constipation. Positive for abdominal fullness. No syncopal episode. No fever or chills. HOME MEDICATIONS: Included; 1. Colace 100 mg b.i.d. 2. Acetaminophen with codeine. Medications of August 08, 2019; Zosyn 2.25 g IV q.8, isotonic bicarbonate 100 mL/h, status post vancomycin. PAST MEDICAL HISTORY: 1. History of metastatic cancer/rectal carcinoma, recent diagnosis. 2. Chronic pain. PAST SURGICAL HISTORY: Status post eye surgery as a child. SOCIAL HISTORY: Currently, the patient has been smoking about half a pack of cigarettes per day for the last 30 years. Alcohol, occasional. No IV drug abuse. Status post blood transfusion. FAMILY HISTORY: Positive family history of hypertension. ALLERGIES: UNKNOWN. TRAUMA: None. IMMUNIZATIONS: Up-to-date. HOSPITALIZATIONS: Please see past medical history. PHYSICAL EXAMINATION: VITAL SIGNS: Blood pressure is 111/58, heart rate 81, respiratory rate 15, and pulse ox 100%. GENERAL: Awake, alert, supine, cachetic looking. SKIN: Decreased turgor. HEENT: He has slightly pale conjunctivae. Anicteric sclerae. NECK: No neck mass. No carotid bruits. No JVD. CHEST: No deformities. LUNGS: Clear breath sounds. HEART: Normal sinus rhythm. No murmurs. No gallops. No rubs. ABDOMEN: Globular, soft, and nontender. No masses. Positive for ascites. EXTREMITIES: No edema. LABORATORY DATA: Laboratories of August 08, 2019l white count 17.6, hemoglobin 8.1. Sodium 133, potassium 4.1, chloride 102, carbon dioxide 18, BUN 90, creatinine 5.62, GFR 13 mL/minute, glucose 105, calcium is 8.1, and phosphorus 5.8. Albumin 2.4. ASSESSMENT AND PLAN: 1. Acute kidney injury - consider hemodynamically-mediated renal dysfunction. Continue IV hydration with isotonic bicarbonate. We will add albumin 25 g IV q.6. There is no indication for any emergent dialysis with this patient. Continue volume repletion. 2. Rectal cancer with metastasis. Continue supportive care. 3. Anemia. P.r.n. blood transfusion. Please note the urinalysis was reviewed and it did show some evidence of acute tubular necrosis - granular casts of 4 to 6. He did have protein. If no significant improvement with volume repletion, we may need to consider dialytic intervention. Thank you for the consult. We will continue to follow. Job ID: [id number]
[2019-08-08] MEDS ORDERED: Phytonadione 10 MG/ML AMP PO SCH (10:45)
[2019-08-08] MEDS ORDERED: Dextrose 5 %-0.45 % NaCl 1,000 ML IV SCH (10:45)
[2019-08-08] MEDS: Albumin 25% 25 GM/100 ML BOT IVPB SCH ×2 (11:20→17:06)
[2019-08-08] MEDS ORDERED: Sodium Chloride 0.9% 1,000 ML IV SCH (12:00)
[2019-08-08] MEDS ORDERED: Meropenem 1 GM in Sodium Chloride 0.9% 100 ML IVPB SCH (14:00)
[2019-08-08] MEDS: MEROPENEM 1 GM/50 ML 1 GM in Premix Bag 1 BAG IVPB SCH ×2 (14:06→22:29)
--- NOTE | 2019-08-08 15:02 | PDOC.PALCO ---
Palliative Care Consult - Consult Details Requesting Physician: Dr Harmon Reason for Consult: goals of care, assistance with communication prognosis/ disease Family Members Present: None - Pertinent HPI 48 year old male who came to the emergency room secondary to weakness. Patient followed by [facility] for metastatic cancer, recent diagnosis. After examiniation in the emergency room he was admitted for hepatorenal failure, cholangitis, Metastatic Cancer. In attempting to obtain information from patient he is a poor historian, unable to give specifics in relation to "weakenss and its duration/triggers". - Social History Smoking Status: Current every day smoker Smoking: less than 1 pack/day Alcohol Use: occasional Drug Use History: none Living Situation: other (Lives with his sister) - Medications MAR Reviewed: Yes - Allergies Allergies/Adverse Reactions: Allergies Allergy/AdvReac Type Severity Reaction Status Date / Time No Known Allergies Allergy Verified 08/08/19 05:14 - Objective Vital Signs: Vital Signs - Most Recent Temp Pulse Resp BP Pulse Ox 99.3 F 97 08/08/19 11:05 08/08/19 07:42 Palliative Performance Scale: 50 - Physical Exam Constitutional: confusion Deviation from normal: emaciated, fair hygiene HEENT: moist MMs Deviation from normal: right eye deviates, poor dentition, erythema to sclera Respiratory: clear to auscultation bilateral, unlabored breathing Deviation from normal: diminished to bases Cardiovascular: RRR, no significant murmur Gastrointestinal: soft Deviation from normal: mild tenderness with palpation to upper quad, non specific Neurological: moves all 4 limbs Psychiatric: A&O x 3 Deviation from normal: flat affect, Skin: normal turgor - Problem List (1) Palliative care encounter Code(s): Z51.5 - ENCOUNTER FOR PALLIATIVE CARE Current Visit: Yes Status: Acute (2) Hepatorenal failure Code(s): K76.7 - HEPATORENAL SYNDROME Current Visit: Yes Status: Acute (3) Metastasis Code(s): C79.9 - SECONDARY MALIGNANT NEOPLASM OF UNSPECIFIED SITE Current Visit: No Status: Acute (4) Rectal cancer Code(s): C20 - MALIGNANT NEOPLASM OF RECTUM Current Visit: No Status: Acute - Plan/Recommendations Plan: Discussed resuscitation status with patient, he has a difficult time comprehending. Further discussed chronic disease processes specifically hepatorenal syndrome and metastatic cancer. When patient was asked to tell me "what he understood was wrong" he could not, information shared again. Patient then asked to teach me about his health status, again unable to relay information. Sister not present but is to come to the hospital this afternoon. Asked for Palliative Care to be notified when she arrives so we can again teach in relation to chronic health conditions and discuss goals of care. [60] minutes spent on this encounter with >50% of the time in counseling and coordination of care. Thank you for this very appropriate consult.
[2019-08-08] MEDS ORDERED: Acetaminophen/Codeine 30-300mg Tablet PO PRN (22:10)
[2019-08-08] MEDS: Acetaminophen/Codeine 30-300mg Tablet PO PRN (22:23)
[2019-08-08] MEDS: Sodium Bicarbonate 50 MEQ in Dextrose 5 %-0.45 % NaCl 1,000 ML IV SCH (22:38)
[2019-08-09] MEDS ORDERED: Dextrose 5% in Water 500 ML IV SCH (03:45)
[2019-08-09] MEDS: MEROPENEM 1 GM/50 ML 1 GM in Premix Bag 1 BAG IVPB SCH ×2 (05:52→12:42)
[2019-08-09 06:14] LABS: INR-International Normal Ratio 2.4; Prothrombin Time 26.1 SEC (12.0-14.7)
--- NOTE | 2019-08-09 06:27 | PDOC.FM ---
- Subjective Subjective: Overnight, patient received 2 bolus' of D5 due to his BP being low. Patient resting in bed this morning. He states he has been unable to get any sleep. He denies any pain, SOB, NVD. He has no complaints or concerns. - Objective MAR Reviewed: Yes Vital Signs & Weight: Vital Signs (12 hours) Temp Pulse Ox 08/09/19 03:33 98.2 F 08/08/19 23:40 98.8 F 08/08/19 20:00 98.8 F 98 08/08/19 19:00 98.5 F Weight Admit Weight 59.999 kg Weight 53.6 kg Most Recent Monitor Data Heart Rate from ECG 82 NIBP 101/58 NIBP BP-Mean 72 Respiration from ECG 15 SpO2 99 I&O: 08/07/19 08/08/19 08/09/19 06:59 06:59 06:59 Intake Total 430 2150 Output Total 175 Balance 255 2150 Result Diagrams: 08/09/19 05:19 08/09/19 05:19 Phys Exam - Physical Examination Constitutional: NAD HEENT: moist MMs sclera icteric Neck: supple, full ROM Respiratory: no wheezing, clear to auscultation bilateral Cardiovascular: RRR, no significant murmur, no rub Gastrointestinal: soft, non-tender, no distention, positive bowel sounds Musculoskeletal: no edema, pulses present Neurological: non-focal, moves all 4 limbs Psychiatric: normal affect, A&O x 3 Skin: no rash, normal turgor, cap refill <2 seconds Dx/Plan (1) Hepatorenal failure Code(s): K76.7 - HEPATORENAL SYNDROME Status: Acute (2) Cholangitis Code(s): K83.09 - OTHER CHOLANGITIS Status: Suspected (3) [place] (acute kidney injury) Code(s): N17.9 - ACUTE KIDNEY FAILURE, UNSPECIFIED Status: Acute (4) GI bleed Code(s): K92.2 - GASTROINTESTINAL HEMORRHAGE, UNSPECIFIED Status: Acute (5) Metastasis Code(s): C79.9 - SECONDARY MALIGNANT NEOPLASM OF UNSPECIFIED SITE Status: Acute (6) Rectal cancer Code(s): C20 - MALIGNANT NEOPLASM OF RECTUM Status: Acute - Plan Plan: Hepatorenal Syndrome, suspected Likely 2/2 to widely metastatic cancer. Review of historical lab values reveals considerable renal and hepatic deterioration. - Cr: 6 -> 4.66; AST: 322 -> 218/ ALT: 149 ->96; Alk Phos: 2187 ->1463 - GI, Pulmonology, nephro consulted, appreciate all recs. Patient on bicarb drip and albumin. Given 1 dose of vit K - another to be given today. - Case Management consulted - extensive conversation about Code Status and Palliative Care Renal Failure 2/2 ATN and Hepatorenal Syndrome - Nephro consulted- Dr. Knight- follow recs - Started on bicarb drip. Will trend labs. Given albumin. - May need dialytic intervention if fluids does not correct. - Monitor Strict I&O's Acute Cholangitis, possible Patient referenced vague abdominal pain during evaluation, notably poor historian - Elevated AST, ALT, Alk Jolie, Ammonia levels concerning but downtrending - BCX: prelim NGTD; Ucx pending - ABD US: showing evidence of cholelithiasis and cholecystitis. Dilated CBD. GI consulted, appreciated recommendations. - Vanc/zosyn discontinued due to kidney injury. Started on meropenem. Will continue. Metastatic Cancer, likely Rectal Adenocarcinoma CXR: Mild opacification in left lung field. CT ABD/Pelvis: Suspicious masses noted in lungs, liver, adrenal glands, and colon. - ABD US: see above - Patient states that he is currently being followed by [facility] - Patient states that he desires paliative radiation therapy, likelihood of therapy appears unclear - Consider consulting Oncologist once immediate clinical condition improves Code Status: Full Code Diet: Renal low protein with suplena supplement DVT PPx: SCDs Activity: Ad Ev Dispo: Additional conversations about goals of care with patient and patient's family with palliative care. Specialists recommendations appreciated. Expected LOS > 48H. Case discussed with Dr. Ramirez Addendum - Attending - Attending Attestation Date/Time: 08/09/19 1052 I personally evaluated the patient and discussed the management with Dr. Anton I agree with the History, Examination, Assessment and Plan documented above with any addition or exceptions noted below - Patient denies any abdominal pain , N/V. Afebrile VSS A/P: 1) ORVILLE- mild improvement in renal function; continue bicarb. Plans as per renal. 2) Probable obstructive jaundice- GI consulted; will await recommendations. 3) Metastatic rectal cancer- Palliative consulted and will continue discussion with patient and family
[2019-08-09 06:32] LABS: ALT (SGPT) 96 U/L (8-55); AST (SGOT) 218 U/L (5-34); Albumin 2.5 g/dL (3.5-5.0); Alkaline Phosphatase 1463 U/L (40-110); Protein, Total 5.7 g/dL (6.0-8.3)
[2019-08-09 06:33] LABS: Anion Gap 15 mmol/L (10-20); BUN (Urea Nitrogen) 76 mg/dL (8.9-20.6); Calc. Creatinine Clearance 14 mL/min (70-130); Calcium 7.8 mg/dL (7.8-10.44); Carbon Dioxide 16 mmol/L (22-29); Chloride 102 mmol/L (98-107); Estimated GFR-MDRD 16; Glucose 98 mg/dL (70-105); Magnesium 2.3 mg/dL (1.6-2.6); Potassium 3.5 mmol/L (3.5-5.1); Sodium 129 mmol/L (136-145)
[2019-08-09 06:44] LABS: Bilirubin, Total 30.7 mg/dL (0.2-1.2)
[2019-08-09 06:49] LABS: #Eosinphils 0.3 thou/uL (0.0-0.7); #Lymphocytes 1.3 thou/uL (1.20-3.40); #Monocytes 0.8 thou/uL (0.11-0.59); %Basophils 0.2 % (0.0-1.0); %Eosinophils 1.8 % (0.0-10.0); %Lymphocytes 7.2 % (21.0-51.0); %Monocytes 4.6 % (0.0-10.0); %Neutrophils 86.2 % (42.0-75.0); Hemoglobin 7.7 g/dL (14.0-18.0); MDiff Complete? YES; Mean Corpuscular Hemoglobin 29.3 pg (27.0-31.0); Mean Corpuscular Volume 83.6 fL (78.0-98.0); Mean Platelet Volume 7.6 fL (7.4-10.4); Platelet Count 418 thou/uL (130-400); RBC Distribution Width 16.1 % (11.5-14.5); Red Blood Cell (RBC) Count 2.64 mill/uL (4.70-6.10); Target Cells SLIGHT = 2-5 cells (100X) (0-1/hpf); White Blood Cell (WBC) Count 17.4 thou/uL (4.8-10.8)
[2019-08-09 07:59] LABS: Bilirubin, Direct Greater than 20.0 mg/dL (0.1-0.3)
[2019-08-09] MEDS ORDERED: Phytonadione 10 MG/ML AMP PO SCH (09:00)
[2019-08-09] MEDS: Sodium Bicarbonate 50 MEQ in Dextrose 5 %-0.45 % NaCl 1,000 ML IV SCH (12:40)
[2019-08-09 13:51] VITALS: BMI 18.7
--- NOTE | 2019-08-09 14:28 | PRG ---
DATE OF SERVICE: 08/09/2019 SERVICE: Pulmonary Medicine. INTERVAL HISTORY: The patient is doing really well from respiratory standpoint. Denies any current chest discomfort, nausea, or vomiting. Otherwise, there has been no interval change to his condition. His appetite has yet to pickling solution maker very much. PHYSICAL EXAMINATION: VITAL SIGNS: Afebrile, pulse 80, blood pressure 88/55, respirations 13, saturation 99%, currently on room air. GENERAL: The patient is awake and alert, in no apparent distress. LUNGS: Very good air entry. There is no prolonged expiratory phase or wheezing present. HEART: Normal rate, regular. ABDOMEN: Soft, nontender, nondistended. Bowel sounds are positive. MUSCULOSKELETAL: No cyanosis or clubbing. There is no pitting edema. The skin turgor has improved dramatically. NEUROLOGIC: Grossly nonfocal. LABORATORY DATA: WBC 17.4, hemoglobin 7.7, platelets 418,000 and gently downtrending. INR 2.4, has improved slightly. Sodium 129 and gently downtrending, bicarb 16, creatinine 4.66, BUN 76. Basic metabolic profile is otherwise unremarkable. Bilirubin is 31, most of which is direct. AST, ALT, and alkaline phosphatase continue to improve. Ammonia level is greater than 925. Blood cultures x2 are unremarkable. IMAGING STUDIES: Abdominal ultrasound demonstrates no evidence of obstructive uropathy. ASSESSMENT: 1. Obstructive liver disease. 2. Pancreatic head mass. 3. 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 4. Acute kidney injury. 5. Dehydration, severe. DISCUSSION AND PLAN: I will switch the fluids over to D5 water. We will put 3 amps of bicarbonate to make it isotonic. His p.o. intake has yet to significantly improve. At this point, however, he is stable for transition out of the ICU to the medical unit. When he leaves the [facility], I will sign off. I will involve Physical Therapy and encourage mobility while he remains inhouse. Job ID: [id number]
--- NOTE | 2019-08-09 15:41 | PQF ---
CLINICAL DOCUMENTATION IMPROVEMENT CLARIFICATION FORM: ICD-10 Updated PLEASE DO AN ADDENDUM TO THE PROGRESS NOTE WITH ANY DOCUMENTATION UPDATES OR ADDITIONS AND CARRY THROUGH TO DC SUMMARY. THANK YOU. Date: 08/09/19 ATTN: DR. REYES Please exercise your independent, professional judgment in responding to the clarification form. Clinical indicators are provided on the bottom of this form for your review Please check appropriate box(s): [ x ] Protein Calorie Malnutrition: [ ] Mild [ ] Moderate [x ] Severe [ ] Other Malnutrition (please specify) __ [ ] Underweight without malnutrition [ ] Cachexia [ ] Other diagnosis [ ] Unable to determine In addition, please specify: Present on Admission (POA): [ x ] Yes [ ] No [ ] Unable to determine CLINICAL INDICATORS - SIGNS / SYMPTOMS / LABS DIETARY NOTE 08/08: "RD OBSERVED MULTIPLE AREAS OF WASTING. FAT WASTING OBSERVED TO RIBCAGE, TRICEPS, AND ORBITAL REGION AND MUSCLE WASTING OBSERVED TO TEMPLES, SHOULDERS AND DORSAL INTEROSSEI SUGGESTING SEVERE MALNUTRITION IN THE CONTEXT OF CHRONIC ILLNESS." "8.4% WEIGHT POLITICAL GEOGRAPHER THE PAST 1 MONTH" 08/07: ALBUMIN 2.8 BMI 18.7 (PER NURSING DOCUMENTATION) RISKS: METASTATIC CANCER (PROGRESS NOTE 08/09) TREATMENT: DIETARY CONSULT 08/08 RECOMMENDATION OF NUTRITIONAL SUPPLEMENTS (DIETARY NOTE 08/08) CONSIDERATION OF APPETITE STIMULANTS PER DIETARY NOTE 08/08 Moderate Malnutrition (in acute illness) Energy Intake: <75% of estimated energy requirement for > 7 days Weight Loss: 1-2%/1 week; 5%/ 1 month; 7.5%/3 months Other: mild body fat loss; mild muscle mass loss; mild fluid accumulation; Severe Malnutrition (in acute illness) Energy Intake: < 50% of estimated energy requirement for > 5 days Weight Loss: >1-2%/1 week; >5%/1 month; >7.5%/3 months Other: moderate body fat loss; moderate muscle mass loss; moderate- severe fluid accumulation; measurably reduced loom operator strength Moderate Malnutrition (in chronic illness) Energy Intake: <75% of estimated energy requirement for >1 month Weight Loss: 5%/1 month; 7.5%/3 months; 10%/6 months; 20%/1 year Other: mild body fat loss; mild muscle mass loss; mild fluid accumulation Severe Malnutrition (in chronic illness) Energy Intake: <75% of estimated energy requirement for >1 month Weight Loss: >5%/1 month; >7.5%/3 months; >10%/6 months; >20%/1 year Other: severe body fat loss; severe muscle mass loss; severe fluid accumulation ; measurably reduced loom operator strength (This form is maintained as a part of the permanent medical record) 2014 [employer]. All Rights Reserved [email or web address] Office: [phone] [facility] MED[facility] CENTERFortino
[2019-08-09 16:37] LABS: Acetaminophen Less than 6.0 mcg/mL (10.0-30.0)
[2019-08-09] MEDS ORDERED: Vancomycin HCl 500 MG in Sodium Chloride 0.9% 100 ML IVPB SCH (17:00)
[2019-08-09] MEDS: Sodium Bicarbonate 150 MEQ in Dextrose 5% in Water 1,000 ML IV SCH (18:37)
--- NOTE | 2019-08-09 19:32 | PRG ---
DATE OF SERVICE: 08/09/2019 SUBJECTIVE: Mr. Chamberlain is a 48-year-old black male, who was admitted for acute kidney injury. At that time, I felt that he had hemodynamically-mediated renal dysfunction. Volume repletion has been done with crystalloids and colloids. Renal function is slowly improving. The patient has a recent history of metastatic cancer to the liver and the lungs, probably from a primary of rectal cancer? This evening, he is feeling better with IV hydration, renal function has much improved. OBJECTIVE: VITAL SIGNS: Blood pressure is 93/57, heart rate 82, respiratory rate 16, pulse ox 96%. GENERAL: Awake, alert, not in distress. SKIN: Decreased turgor. HEENT: He has a slightly pale conjunctivae. Anicteric sclerae. NECK: No neck mass. No carotid bruits. No JVD. CHEST: No deformities. LUNGS: Clear breath sounds. HEART: Normal sinus rhythm. No murmurs. No gallops. No rubs. ABDOMEN: Globular, soft, and nontender. No masses. EXTREMITIES: No edema. No deformities. MEDICATIONS: Medications of August 09, 2019, were reviewed. LABORATORY DATA: Laboratories of August 09, 2019: White count 17.4, hemoglobin 7.7. Sodium 129, potassium 3.5, chloride 102, carbon dioxide 16, BUN 76, creatinine 4.66, and magnesium 2.3. Ammonia is greater than 925. Blood culture, no growth to date. ASSESSMENT AND PLAN: 1. Leukocytosis, empiric IV antibiotics. 2. Acute kidney injury, considered hemodynamically-mediated renal dysfunction, improving renal function with IV hydration with crystalloids and colloids. Continue current management. There is no indication for any dialytic intervention. 3. Anemia. If this further worsens, consider transfusing at least 1 unit of packed RBC. Please note, I have again re-dosed him with albumin 25 g IV q.6 for another 4 doses. Job ID: [id number]
[2019-08-09] MEDS ORDERED: Meropenem 500 MG in Sodium Chloride 0.9% 100 ML IVPB SCH (21:00)
[2019-08-09] MEDS: Albumin 25% 25 GM/100 ML BOT IVPB SCH (21:02)
[2019-08-10] MEDS: Meropenem 500 MG in Sodium Chloride 0.9% 100 ML IVPB SCH ×2 (00:09→12:45)
[2019-08-10] MEDS: Albumin 25% 25 GM/100 ML BOT IVPB SCH ×3 (01:22→16:10)
[2019-08-10] MEDS: Sodium Bicarbonate 150 MEQ in Dextrose 5% in Water 1,000 ML IV SCH ×2 (05:08→22:13)
--- NOTE | 2019-08-10 05:18 | PDOC.FM ---
- Subjective Subjective: This morning patient appears to be in denial regarding his prognosis. He was informed by multiple providers yesterday that his prognosis was < 6 months but he is not grasping this at this time. Patient states he is feeling better than when he came in, was able to walk to the restroom without issues. Denies pain this morning. - Objective Vital Signs & Weight: Vital Signs (12 hours) Temp Pulse Resp BP Pulse Ox 08/10/19 04:00 98.3 F 83 18 104/61 100 08/10/19 00:07 99.5 F 91 18 96/53 L 100 08/09/19 20:57 98.8 F 87 18 100/48 L 100 08/09/19 17:25 100 Weight Admit Weight 59.999 kg Weight 55.9 kg Most Recent Monitor Data Heart Rate from ECG 82 NIBP 93/57 NIBP BP-Mean 69 Respiration from ECG 16 SpO2 96 I&O: 08/08/19 08/09/19 08/10/19 06:59 06:59 06:59 Intake Total 430 3890 Output Total 175 200 Balance 255 3690 Result Diagrams: 08/10/19 04:34 08/10/19 04:34 Phys Exam - Physical Examination Constitutional: NAD HEENT: moist MMs Respiratory: no wheezing, clear to auscultation bilateral Cardiovascular: RRR, no significant murmur Gastrointestinal: soft, non-tender, no distention, positive bowel sounds Musculoskeletal: no edema, pulses present Neurological: non-focal, moves all 4 limbs Psychiatric: normal affect, A&O x 3 Skin: no rash, cap refill <2 seconds Dx/Plan (1) Hepatorenal failure Code(s): K76.7 - HEPATORENAL SYNDROME Status: Acute (2) Palliative care encounter Code(s): Z51.5 - ENCOUNTER FOR PALLIATIVE CARE Status: Acute (3) Cholangitis Code(s): K83.09 - OTHER CHOLANGITIS Status: Suspected (4) [place] (acute kidney injury) Code(s): N17.9 - ACUTE KIDNEY FAILURE, UNSPECIFIED Status: Acute (5) GI bleed Code(s): K92.2 - GASTROINTESTINAL HEMORRHAGE, UNSPECIFIED Status: Acute (6) Metastasis Code(s): C79.9 - SECONDARY MALIGNANT NEOPLASM OF UNSPECIFIED SITE Status: Acute (7) Rectal cancer Code(s): C20 - MALIGNANT NEOPLASM OF RECTUM Status: Acute - Plan Plan: Hepatorenal Syndrome, Likely 2/2 to widely metastatic cancer. Review of historical lab values reveals considerable renal and hepatic deterioration. - Cr steady, transaminases plateau, still elevated - GI saw patient and informed patient he had weeks to months to live and they did not have any treatment to offer him - GI, Pulmonology, nephro consulted, appreciate all recs. S/p albumin. - Case Management consulted - extensive conversation about Code Status and Palliative Care Renal Failure 2/2 ATN and Hepatorenal Syndrome - Nephro consulted- Dr. Knight- follow recs -s/p bicarb, albumin - not dialysis candidate at this time per nephro - Monitor Strict I&O's - Hgb 7.0, asymptomatic at this time, will monitor, hold off on transfusion for now but will consider - patient may benefit from Epo? Acute Cholangitis, possible Patient referenced vague abdominal pain during evaluation, notably poor historian - BCX: NGTD; Ucx pending - ABD US: showing evidence of cholelithiasis and cholecystitis. Dilated CBD. GI consulted, appreciated recommendations. - still on meropenem Metastatic Cancer, likely Rectal Adenocarcinoma CXR: Mild opacification in left lung field. CT ABD/Pelvis: Suspicious masses noted in lungs, liver, adrenal glands, and colon. - ABD US: see above - Patient states that he is currently being followed by [facility] - specialists give grave prognosis regarding cancer, at this point patient is favoring a 2nd opinion, will await discussion with sister later today. Follows with [facility]. Code Status: Full Code Diet: Renal low protein with suplena supplement DVT PPx: SCDs Activity: Ad Ev Dispo: Additional conversations about goals of care with patient and patient's family with palliative care. Specialists recommendations appreciated. Expected LOS > 48H. Case discussed with Dr. Ramirez Addendum - Attending - Attending Attestation Date/Time: 08/10/19 1204 I personally evaluated the patient and discussed the management with Dr. Uday Ford I agree with the History, Examination, Assessment and Plan documented above with any addition or exceptions noted below - Patient denies any complaints. Afebrile VSS. A/P: 1) ARF - minimal improvement with fluids. Continue to monitor. 2) Obstructive jaundice - appreciate GI input; no further therapy at this time. 3) Metastatic rectal cancer- will discuss with patient and family later today.
[2019-08-10 05:27] LABS: Anion Gap 16 mmol/L (10-20); BUN (Urea Nitrogen) 67 mg/dL (8.9-20.6); Calc. Creatinine Clearance 17 mL/min (70-130); Calcium 8.6 mg/dL (7.8-10.44); Carbon Dioxide 19 mmol/L (22-29); Chloride 105 mmol/L (98-107); Estimated GFR-MDRD 18; Glucose 101 mg/dL (70-105); Potassium 3.2 mmol/L (3.5-5.1); Sodium 137 mmol/L (136-145)
[2019-08-10 05:55] LABS: Band 2 % (5-11); Lymphocytes 6 % (21-51); MDiff Complete? YES; Mean Corpuscular HGB CONC 34.4 g/dL (32.0-36.0); Mean Corpuscular Hemoglobin 29.2 pg (27.0-31.0); Mean Corpuscular Volume 84.9 fL (78.0-98.0); Mean Platelet Volume 7.6 fL (7.4-10.4); Monocytes 5 % (0-10); Neutrophil 87 % (42-75); Nucleated RBC 1 % (0); Platelet Count 425 thou/uL (130-400); Platelet Morphology Comment Appears Increased; RBC Distribution Width 16.2 % (11.5-14.5); Red Blood Cell (RBC) Count 2.38 mill/uL (4.70-6.10); Target Cells MODERATE= 6-15 cells (100X) (0-1/hpf); White Blood Cell (WBC) Count 17.6 thou/uL (4.8-10.8)
[2019-08-10 06:01] LABS: ALT (SGPT) 93 U/L (8-55); AST (SGOT) 236 U/L (5-34); Albumin 3.1 g/dL (3.5-5.0); Alkaline Phosphatase 1353 U/L (40-110); Globulin 2.9 g/dL (2.4-3.5)
[2019-08-10 06:07] LABS: Bilirubin, Total 37.4 mg/dL (0.2-1.2)
[2019-08-10] MEDS: Potassium Chloride 20 MEQ TAB PO SCH ×2 (08:45→16:13)
--- NOTE | 2019-08-10 09:04 | PDOC.BPN ---
- Brief Progress Note Called patient's sister Jaci States she will come sometime this afternoon She states she wants to do whatever the patient wants, sister does not seem to have great insight into severity of patient's illness PC team consulted will visit with sister this PM
--- NOTE | 2019-08-10 12:34 | PRG ---
DATE OF SERVICE: 08/10/2019 HISTORY: Mr. 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 We are following up this patient for his acute kidney injury. Initially, we felt that he may have a hemodynamically-mediated renal dysfunction. IV hydration has been given. He has received crystalloids and colloids. There is some improvement with the renal function, but this has not normalized to within normal. His most recent creatinine is 4.16, and the patient came into the hospital with a creatinine of 6.0. He is feeling better with IV hydration. No complaints of chest pain or shortness of breath. OBJECTIVE: VITAL SIGNS: Blood pressure 100/53, heart rate 85, respiratory rate 18, temperature 98.2, pulse ox 100%. GENERAL: Awake, alert, comfortable, not in distress. SKIN: Adequate turgor. HEENT: Icteric sclerae. NECK: No neck mass. No carotid bruits. No JVD. LUNGS: Decreased breath sounds. HEART: Normal sinus rhythm. No murmurs, gallops, or rubs. ABDOMEN: Globular, soft, nontender. No masses. EXTREMITIES: No edema. No deformities. MEDICATIONS: Medications of August 10, 2019, has been reviewed. LABORATORY DATA: Laboratories of August 10, 2019; sodium 137, potassium 3.2, chloride 105, carbon dioxide 19, BUN 67, creatinine 4.18, glucose 101, calcium 8.6, bilirubin 37.4, AST 236, ALT 93, albumin 3.1. ASSESSMENT AND PLAN: 1. Acute kidney injury - consider hemodynamically-mediated renal dysfunction. Currently, receiving crystalloids and colloids. He does have some protein in the urine. In addition, findings of granular cast is noted. It is possible that this patient may have an underlying acute tubular necrosis. His creatinine, although it is plateauing and is not normalizing. I do not see any indication for any dialytic intervention with this patient. 2. Rectal cancer with metastasis to the lungs, liver. Continue supportive care. As previously mentioned, his oncologist is planning to give him chemotherapy once he is much improved. 3. Anemia - continue to observe p.r.n. blood transfusion. Recheck basic metabolic and CBC in a.m. Job ID: [id number]
--- NOTE | 2019-08-10 13:35 | CON ---
DATE OF CONSULTATION: 08/09/2019 REASON FOR CONSULT: Biliary obstruction, acute renal failure. HISTORY OF PRESENT ILLNESS: Mr. Chamberlain is a 48-year-old gentleman, who was diagnosed with metastatic colon cancer to the liver based on rectal biopsies and a colonoscopy on 07/02. Apparently, the patient was going to be seen in the oncology clinic here, but they did not take his insurance. He subsequently saw oncologist more toward the [place] area, and I talked to the oncologist on the phone today. He states he saw for the first time about 2 weeks ago, but his renal function was failing and his liver tests were up. They were trying to get an MRI to see if he had biliary obstruction and get him to see a renal doctor before they could do any type OF treatment, which the patient did want to do. In the interim, the patient ended up coming here again on 07/25 and then more recently came in on 08/07 and was admitted. When he came on the , which is for a transfusion. When he presented on the , apparently came in because he was told he had kidney failure. He states he came in as his oncologist told him to come to the hospital for kidney failure. On his labs, he was found to have a BUN and creatinine of 70 and 5.7. These had been 11 and 1 on 07/25/2019. Additionally, he also was noted to have elevated LFTs and bilirubin when he was diagnosed back on 07/05, he had a bilirubin of 8.3 with AST and ALT of 55 and 59 and alkaline phosphatase of 216. On 07/25, he had a bilirubin of 23, AST and ALT of 190 and 146 with an alkaline phosphatase of 1406. When he arrived here, he had a bilirubin of 37, AST of 322, ALT of 144, and alkaline phosphatase of 2186. At present, the patient denies pruritus. He denies abdominal pain. He just wants to rest and feel like he will get a little bit better. His imaging studies are notable for significant intrahepatic ductal dilatation and common bile duct dilatation, which was not present on 07/01/2019 CAT scan. He has stable pulmonary metastasis. His liver metastatic lesions look larger. His CAT scan did show some attenuation of the soft tissue mass in the ampullary region, which may be metastatic disease. He had a left adrenal mass, look like metastatic disease. Fecalization of bowel content and some mild dilatation of the mid ileal small bowel. Some rectal wall thickening, which may be adenopathy, avascular necrosis. I have talked with the patient, he is not aware of how ill he is. His oncologist, I talked to, states he is not confident we could treat him especially if he has renal failure. He states that his biliary obstruction could be stented that he may be able to treat him, but with renal failure, he cannot treat him .. Here in the hospital, he has seen Family Practice, and Nephrology saw the patient yesterday. Nephrology's feeling was that his acute kidney injury thought maybe there was some ATN. He has been seen by Pulmonary Services as well. He has had no fever, chills, or rigors. REVIEW OF SYSTEMS: Specifically negative for abdominal pain, rigors, nausea, or vomiting. Poor appetite, weight change. Respiratory notable for no cough or shortness of breath. PAST MEDICAL HISTORY: Rectal cancer metastatic to lung and liver. PAST SURGICAL HISTORY: 1. Eye surgery. 2. Colonoscopy. FAMILY HISTORY: Noncontributory. SOCIAL HISTORY: The patient has a history of drinking alcohol 3-4 beers 3-4 times a week, prior cigarette smoking, is not drinking or smoking much now. No history of drug use. PRESENT MEDICATIONS AT HOME: Unknown except for Colace and Tylenol No. 4. Medications here; Tylenol with codeine, bisacodyl, meropenem, sodium bicarb 50 mL an hour. PHYSICAL EXAMINATION: VITAL SIGNS: T-max 99.7, T-current 99.2, pulse 82, blood pressure 93/57 and 96/ 59. GENERAL: He is icteric. He has temporal wasting, muscle wasting. He is alert. He knows where he is. HEENT: He has no cervical adenopathy. NECK: No JVD. Supple. LUNGS: Clear. HEART: Regular rhythm. ABDOMEN: Notable for massive hepatomegaly with right lobe of the liver palpable down to just above the iliac crest. He has a right inguinal lymph node, enlarged. EXTREMITIES: No clubbing, cyanosis, or edema. No asterixis. LABORATORY STUDIES: Sodium 129, potassium 3.5, BUN and creatinine 76 and 4.66. Bilirubin is 30.7, direct is greater than 20, AST is 218, ALT is 96, alkaline phosphatase is 1463. Ammonia 925. Protein 5.7 and albumin 2.5. CEA was 52 on 08/06. INR is 2.4, was 2.8 on admission. ASSESSMENT: This is a 48-year-old gentleman, who has diffusely metastatic rectal cancer involving lung, inguinal nodes, and liver, who now has developed acute renal failure and signs of hepatic failure with elevated INR and encephalopathy. He does have a component of biliary obstruction, which is very obvious on his CAT scan versus the CAT scan from just 1 month ago. However, this I do not think is reason for his encephalopathy, could be contributed to his coagulopathy. At this time , he is not a candidate for chemotherapy or treatment and in fact really would not be enunciated improvement of renal function. I do not anticipate that can occur even with dialysis and I suspect his liver function is going to worsen. At this time , I would not recommend any stenting of his biliary tree as this would be palliative in nature. He shows no signs of ascending cholangitis. Really palliative stenting is recommended in cases where the patient's life span is going to be extended by 3- 6 months, and in this case, I am not sure with his renal failure that is going to happen. With his liver failure with elevated INR and elevated ammonia indicating encephalopathy, more likely this component is not related to biliary obstruction , but his massive hepatic replacement by liver tumor. RECOMMENDATIONS: 1. Palliative care. 2. Give vitamin K to see if we can reverse coagulopathy. Lactulose to be reasonable if he will take it. We will follow along. Please do not hesitate to contact me if you have any further questions, but at this time I do not think there is any indications for stenting for palliative care unless his renal function improves. He will not be a candidate for any type of salvage or palliative chemotherapy. Job ID: [id number] MTDD
--- NOTE | 2019-08-10 23:23 | EKG ---
Test Reason : RENAL FAILURE Blood Pressure : / mmHG Vent. Rate : 075 BPM Atrial Rate : 075 BPM P-R Int : 138 ms QRS Dur : 092 ms QT Int : 388 ms P-R-T Axes : 067 014 016 degrees QTc Int : 433 ms Normal sinus rhythm Normal ECG Confirmed by CAYDEN RAYA DO ([id number]), newspaper editor managing JOSEPH MCDUFFIE ([id number]) on 08/10/2019 11:23:14 PM Referred By: JANEO Confirmed By:CAYDEN RAYA DO
[2019-08-11] MEDS: Meropenem 500 MG in Sodium Chloride 0.9% 100 ML IVPB SCH ×2 (00:16→11:55)
--- NOTE | 2019-08-11 06:32 | PDOC.FM ---
- Subjective Subjective: This morning patient states he understands his prognosis, although insight may still be lacking. Sister did not come to the hospital yesterday as she had mentioned she would during phone call noted in the morning. Patient has no complaints overnight. No SOB or chest pain. Was able to transfer to commode on his own and walk to the restroom yesterday. - Objective Vital Signs & Weight: Vital Signs (12 hours) Temp Pulse Resp BP Pulse Ox 08/11/19 04:05 98.8 F 87 16 109/65 100 08/11/19 00:30 99.3 F 86 16 100/63 100 08/10/19 20:44 99.2 F 84 16 102/61 100 Weight Admit Weight 59.999 kg Weight 55.9 kg Most Recent Monitor Data Heart Rate from ECG 82 NIBP 93/57 NIBP BP-Mean 69 Respiration from ECG 16 SpO2 96 I&O: 08/09/19 08/10/19 08/11/19 06:59 06:59 06:59 Intake Total 3890 900 Output Total 200 Balance 3690 900 Result Diagrams: 08/11/19 06:09 08/11/19 06:09 Phys Exam - Physical Examination Constitutional: NAD HEENT: moist MMs, sclera anicteric Respiratory: no wheezing, clear to auscultation bilateral Cardiovascular: RRR, no significant murmur Gastrointestinal: soft, non-tender, no distention, positive bowel sounds Musculoskeletal: no edema, pulses present Neurological: moves all 4 limbs Lymphatic: no nodes Psychiatric: normal affect, A&O x 3 Skin: no rash, cap refill <2 seconds Dx/Plan (1) Hepatorenal failure Code(s): K76.7 - HEPATORENAL SYNDROME Status: Acute (2) Palliative care encounter Code(s): Z51.5 - ENCOUNTER FOR PALLIATIVE CARE Status: Acute (3) Cholangitis Code(s): K83.09 - OTHER CHOLANGITIS Status: Suspected (4) ORVILLE (acute kidney injury) Code(s): N17.9 - ACUTE KIDNEY FAILURE, UNSPECIFIED Status: Acute (5) GI bleed Code(s): K92.2 - GASTROINTESTINAL HEMORRHAGE, UNSPECIFIED Status: Acute (6) Metastasis Code(s): C79.9 - SECONDARY MALIGNANT NEOPLASM OF UNSPECIFIED SITE Status: Acute (7) Rectal cancer Code(s): C20 - MALIGNANT NEOPLASM OF RECTUM Status: Acute - Plan Plan: # AM labs still pending as of 629, will f/u 08/11- patient is showing some increased insight into his diagnosis, states he just wants to go home, states he lives with his sister who helps take care of him, states he does not need help in the home. Sister has not come to the hospital for conversation as of yet. Patient states he thinks that she is going to come today. Hepatorenal Syndrome, Likely 2/2 to widely metastatic cancer. Review of historical lab values reveals considerable renal and hepatic deterioration. - Cr steady, transaminases plateau, still elevated - GI saw patient and informed patient he had weeks to months to live and they did not have any treatment to offer him - GI, Pulmonology, nephro consulted, appreciate all recs. S/p albumin. - Case Management consulted - extensive conversation about Code Status and Palliative Care Renal Failure 2/2 ATN and Hepatorenal Syndrome - Nephro consulted- Dr. Knight- follow recs -s/p bicarb, albumin - not dialysis candidate at this time per nephro - Monitor Strict I&O's - Hgb 7.0 on 08/11, if still low today would consider transfusion - patient may benefit from Epo? Acute Cholangitis, possible Patient referenced vague abdominal pain during evaluation, notably poor historian - BCX: NGTD; Ucx pending - ABD US: showing evidence of cholelithiasis and cholecystitis. Dilated CBD. GI consulted, appreciated recommendations. - still on meropenem Metastatic Cancer, likely Rectal Adenocarcinoma CXR: Mild opacification in left lung field. CT ABD/Pelvis: Suspicious masses noted in lungs, liver, adrenal glands, and colon. - ABD US: see above - Patient states that he is currently being followed by [facility] - specialists give grave prognosis regarding cancer, Follows with [facility]. Code Status: Full Code Diet: Renal low protein with suplena supplement DVT PPx: SCDs Activity: Ad Ev Dispo: Additional conversations about goals of care with patient and patient's family with palliative care. Specialists recommendations appreciated. Expected LOS > 48H. Case discussed with Dr. Ramirez Addendum - Attending - Attending Attestation Date/Time: 08/11/19 1136 I personally evaluated the patient and discussed the management with Dr. R. Buse I agree with the History, Examination, Assessment and Plan documented above with any addition or exceptions noted below - Patient without complaints. Appetite slowly improving. Afebrile VSS. A/P: 1) ORVILLE- slowly improving; continue IVF. 2) Obstructive jaundice - asymptomatic; continue to monitor. 3) D/ c planning- sister will be here later today; will meet and discuss prognosis and goals of care.
[2019-08-11 06:49] LABS: Band 12 % (5-11); Hemoglobin 7.4 g/dL (14.0-18.0); Lymphocytes 5 % (21-51); MDiff Complete? YES; Mean Corpuscular HGB CONC 34.5 g/dL (32.0-36.0); Mean Corpuscular Hemoglobin 29.4 pg (27.0-31.0); Mean Corpuscular Volume 85.1 fL (78.0-98.0); Mean Platelet Volume 7.3 fL (7.4-10.4); Monocytes 6 % (0-10); Neutrophil 77 % (42-75); Nucleated RBC 1 % (0); Platelet Count 420 thou/uL (130-400); RBC Distribution Width 16.7 % (11.5-14.5); White Blood Cell (WBC) Count 19.6 thou/uL (4.8-10.8)
[2019-08-11 06:51] LABS: Anion Gap 14 mmol/L (10-20); BUN (Urea Nitrogen) 52 mg/dL (8.9-20.6); Calc. Creatinine Clearance 22 mL/min (70-130); Calcium 8.7 mg/dL (7.8-10.44); Carbon Dioxide 22 mmol/L (22-29); Chloride 105 mmol/L (98-107); Estimated GFR-MDRD 25; Glucose 110 mg/dL (70-105); Potassium 3.4 mmol/L (3.5-5.1); Sodium 138 mmol/L (136-145)
--- NOTE | 2019-08-11 07:21 | PDOC.BPN ---
- Brief Progress Note hgb 7.4, will hold off on transfusion for now Cr improved to 3.25, will await nephro recs, appreciated Will await goals of care discussion with sister, patient wants to go home but need to ensure he would have adequate care in the home and family has appropriate understanding of his condition
[2019-08-11] MEDS: Acetaminophen/Codeine 30-300mg Tablet PO PRN (08:42)
[2019-08-11] MEDS: Potassium Chloride 20 MEQ TAB PO SCH ×2 (08:43→18:15)
--- NOTE | 2019-08-11 10:24 | PDOC.BPN ---
Addendum entered and electronically signed by Sony Ford MD 08/11/19 10:27: Spoke with Dr. Knight Planning to keep patient for 1 more day of IVF to see if Cr can be optimized Dr. Knight has consulted with patient's oncologist who is planning on more chemotherapy Original Note: - Brief Progress Note Talked to sister Jaci on phone she will come to hospital today to visit patient she is considering hospice, she does not want nursing at this time She does want to take the patient to live at home with her
--- NOTE | 2019-08-11 11:07 | PRG ---
DATE OF SERVICE: 08/11/2019 SUBJECTIVE: Mr. Chamberlain is a 48-year-old black male, who was seen by the Renal Service for his acute kidney injury. At that time, it was felt he had a hemodynamically-mediated renal dysfunction. Empiric volume repletion has been done. In addition, the patient's renal function is slowly improving over time with IV hydration. Of interest, this patient has history of a presumed rectal cancer with metastasis to the liver and lungs. No new complaints today. No chest pain or shortness of breath. OBJECTIVE: VITAL SIGNS: Blood pressure 100/63, heart rate 87, respiratory rate 16, temperature 99, pulse ox 100% on room air. GENERAL: Awake, alert, comfortable, not in distress. SKIN: Adequate turgor. HEENT: Pinkish conjunctivae, icteric sclerae. NECK: No neck mass. No carotid bruits. No JVD. CHEST: No deformities. LUNGS: Clear breath sounds. No wheezing. No crackles. HEART: Normal sinus rhythm. No murmur. No gallops or rubs. ABDOMEN: Globular, soft, nontender, no masses. EXTREMITIES: No edema, no deformities. MEDICATIONS: Medications of August 11, 2019, was reviewed. LABORATORY DATA: August 11, 2019, sodium 138, potassium 3.4, chloride 105, carbon dioxide 22, BUN 52, creatinine 3.25, calcium 8.7. White count 19.6, hemoglobin 7.4. ASSESSMENT AND PLAN: 1. Acute kidney [id number] renal dysfunction. Continue current IV hydration. Due to the metabolic acidosis being much improved, we will change IV fluid normal saline and run it at 125 mL/hour. 2. Rectal cancer with metastasis to liver, lungs, supportive care. I had a short discussion with his associate professor of history several days ago and he wants to consider chemotherapy depending what the renal function will be. For the moment, continue supportive care. Recheck basic metabolic profile and CBC in a.m. Change current IV fluid to a plain normal saline to run at 125 mL/hour. Job ID: [id number]
[2019-08-11] MEDS: Sodium Chloride 0.9% 1,000 ML IV SCH ×2 (11:51→20:57)
[2019-08-11] MEDS ORDERED: Phytonadione 10 MG in Sodium Chloride 0.9% 50 ML IVPB SCH (14:00)
[2019-08-12] MEDS: Meropenem 500 MG in Sodium Chloride 0.9% 100 ML IVPB SCH ×2 (01:08→13:47)
[2019-08-12] MEDS: Acetaminophen/Codeine 30-300mg Tablet PO PRN (01:13)
[2019-08-12 05:15] LABS: INR-International Normal Ratio 1.3; Prothrombin Time 15.9 SEC (12.0-14.7)
[2019-08-12] MEDS: Sodium Chloride 0.9% 1,000 ML IV SCH ×2 (05:38→12:33)
[2019-08-12 05:53] LABS: ALT (SGPT) 90 U/L (8-55); AST (SGOT) 355 U/L (5-34); Albumin 2.7 g/dL (3.5-5.0); Alkaline Phosphatase 1334 U/L (40-110); Anion Gap 14 mmol/L (10-20); BUN (Urea Nitrogen) 43 mg/dL (8.9-20.6); Calc. Creatinine Clearance 24 mL/min (70-130); Calcium 8.7 mg/dL (7.8-10.44); Carbon Dioxide 22 mmol/L (22-29); Chloride 108 mmol/L (98-107); Estimated GFR-MDRD 29; Globulin 3.1 g/dL (2.4-3.5); Glucose 96 mg/dL (70-105); Lipase 44 U/L (8-78); Potassium 3.7 mmol/L (3.5-5.1); Protein, Total 5.8 g/dL (6.0-8.3); Sodium 140 mmol/L (136-145)
[2019-08-12 05:58] LABS: Bilirubin, Total 36.4 mg/dL (0.2-1.2)
[2019-08-12 06:27] LABS: Band 20 % (5-11); Hemoglobin 7.1 g/dL (14.0-18.0); Lymphocytes 8 % (21-51); MDiff Complete? YES; Mean Corpuscular Hemoglobin 28.7 pg (27.0-31.0); Mean Corpuscular Volume 84.4 fL (78.0-98.0); Mean Platelet Volume 7.7 fL (7.4-10.4); Monocytes 3 % (0-10); Neutrophil 69 % (42-75); Platelet Count 402 thou/uL (130-400); RBC Distribution Width 17.2 % (11.5-14.5); Red Blood Cell (RBC) Count 2.49 mill/uL (4.70-6.10); White Blood Cell (WBC) Count 22.5 thou/uL (4.8-10.8)
--- NOTE | 2019-08-12 06:46 | PDOC.FM ---
- Subjective Subjective: NAEO. Patient just returned to room from ERCP - very drowsy. He is responsive and denies any pain. He did endorse some nausea, no vomiting. - Objective MAR Reviewed: Yes Vital Signs & Weight: Vital Signs (12 hours) Temp Pulse Resp BP Pulse Ox 08/12/19 03:20 99 F 81 16 110/68 100 08/11/19 23:24 99.7 F H 93 16 112/67 95 08/11/19 20:57 99 08/11/19 19:36 99.5 F 82 16 112/66 99 Weight Admit Weight 59.999 kg Weight 55.9 kg Most Recent Monitor Data Heart Rate from ECG 82 NIBP 93/57 NIBP BP-Mean 69 Respiration from ECG 16 SpO2 96 I&O: 08/10/19 08/11/19 08/12/19 06:59 06:59 06:59 Intake Total 900 1050 1710 Balance 900 1050 1710 Result Diagrams: 08/12/19 04:27 08/12/19 04:27 Phys Exam - Physical Examination Constitutional: NAD HEENT: moist MMs, sclera anicteric Neck: supple, full ROM Respiratory: clear to auscultation bilateral Cardiovascular: RRR, no significant murmur, no rub Gastrointestinal: soft, non-tender, no distention, positive bowel sounds Musculoskeletal: pulses present Neurological: non-focal, moves all 4 limbs Deviation from normal: drowsy Skin: no rash, normal turgor, cap refill <2 seconds Dx/Plan (1) Hepatorenal failure Code(s): K76.7 - HEPATORENAL SYNDROME Status: Acute (2) Cholangitis Code(s): K83.09 - OTHER CHOLANGITIS Status: Suspected (3) [place] (acute kidney injury) Code(s): N17.9 - ACUTE KIDNEY FAILURE, UNSPECIFIED Status: Acute (4) GI bleed Code(s): K92.2 - GASTROINTESTINAL HEMORRHAGE, UNSPECIFIED Status: Acute (5) Metastasis Code(s): C79.9 - SECONDARY MALIGNANT NEOPLASM OF UNSPECIFIED SITE Status: Acute (6) Rectal cancer Code(s): C20 - MALIGNANT NEOPLASM OF RECTUM Status: Acute - Plan Plan: Hepatorenal Syndrome, Likely 2/2 to widely metastatic cancer. Review of historical lab values reveals considerable renal and hepatic deterioration. - Cr improving; transaminases remain elevated - GI saw patient and informed patient he had weeks to months to live. ERCP unsuccessful today. GI recommended to send patient to [facility] for ERCP and stenting. Patient could then be sent back to [facility]. Will discuss with patient once more coherent to confirm transfer. - GI, Pulmonology, nephro consulted, appreciate all recs. S/p albumin. - Case Management consulted - extensive conversation about Code Status and Palliative Care. Sister of patient is to have discussions with palliative care today. Considering hospice. Would like patient to stay with her at home. Renal Failure 2/2 ATN and Hepatorenal Syndrome - Nephro consulted- Dr. Knight- follow recs - s/p bicarb, albumin - not dialysis candidate at this time per nephro - Monitor Strict I&O's - patient may benefit from Epo vs blood transfusion Acute Cholangitis, possible Patient referenced vague abdominal pain during evaluation, notably poor historian - BCX: NGTD; Ucx pending - ABD US: showing evidence of cholelithiasis and cholecystitis. Dilated CBD. GI consulted, appreciated recommendations. - Continue meropenem Metastatic Cancer, likely Rectal Adenocarcinoma CXR: Mild opacification in left lung field. CT ABD/Pelvis: Suspicious masses noted in lungs, liver, adrenal glands, and colon. - ABD US: see above - Patient states that he is currently being followed by [facility] - specialists give grave prognosis regarding cancer, Follows with [facility]. Code Status: Full Code Diet: Renal low protein with suplena supplement DVT PPx: SCDs Activity: Ad Ev Dispo: Additional conversations about goals of care with patient and patient's family with palliative care. [facility] transfer initiated. Expected LOS > 48H. Case discussed with Dr. Ramirez Addendum - Attending - Attending Attestation Date/Time: 08/13/19 0130 I personally evaluated the patient and discussed the management with Dr. Anton on 08/12/2019 I agree with the History, Examination, Assessment and Plan documented above with any addition or exceptions noted below - Patient sleepy after attempted ERCP. Afebrile VSS. A/P: 1) Obstructive Jaundice - ERCP unsuccessful today. Recommendation by GI for transfer to [facility] for repeat attmept. Will contact family. Patient agreeable to transfer. 2) Metastatic colon cancer- stable. 3) ORVILLE- slowly improving; continue hydration.
[2019-08-12] MEDS ORDERED: Iothalamate Meglumine 60% 50 ML VIAL FS ONE (06:58)
[2019-08-12] MEDS ORDERED: Indomethacin 50 MG SUPP ONE (06:58)
[2019-08-12] MEDS ORDERED: Fentanyl 100 MCG/2 ML VIAL ONE (07:10)
--- NOTE | 2019-08-12 09:22 | PRG ---
DATE OF SERVICE: 08/10/2019 SUBJECTIVE: Mr. Chamberlain' nurse states he is not eating much. He is without complaints. He is watching football game. OBJECTIVE: VITAL SIGNS: Temperature 98.2. He has been afebrile since admission. Pulse 92, blood pressure 102/52. HEENT: He is icteric. LUNGS: Clear. HEART: Regular rate and rhythm. ABDOMEN: Firm, but nontender. There are quiescent bowel sounds. EXTREMITIES: Reveal no edema. LABORATORY DATA: White count 17.6, hemoglobin 7.0, platelet count 425, 87 segs, 2% bands. INR 2.4 yesterday, not checked today. Sodium 137, potassium 3.2, BUN and creatinine are 67 and 4.18. Bilirubin is 37, AST 236, ALT 93, alkaline phosphatase 1353. Blood cultures negative. ASSESSMENT: 1. Metastatic colon cancer, diffuse to lungs and liver. 2. Renal failure of unclear etiology. Nephrology following. This could be related to hepatorenal syndrome. We could relate to acute tubular necrosis. He is not a candidate for any type of chemotherapy while he is in renal failure. I have confirmed this with his tube puller. 3. Biliary obstruction. He has obvious biliary obstruction on his imaging studies. He has no signs of cholangitis. He came in because he was told his labs were abnormal, not for any symptoms of pain. He has been afebrile and it is very unusual to get ascending cholangitis in setting of malignant biliary obstruction unless there has been previous instrumentation. At this time, he is asymptomatic from his biliary obstruction. He is not particularly icteric, and again, he has no signs of cholangitis. As his morbidity is very high in the next several days to months, a palliative stenting is not recommended as he has no real symptoms to palliate at this time. If it was an issue of him getting chemotherapy, we can consider stenting and see if his bilirubin would come down, but his renal failure is going to preclude any chemotherapy at this time. If there is improvement in renal function, we consider biliary stenting at a later date, or if there is some sign of developing sepsis from cholangitis, we would consider it. 4. Hepatic dysfunction with elevated INR and elevated ammonia. This is likely related to his metastatic disease, how much his cholestasis related to tumor and how much related obstruction are unclear, but again as noted above, there is no indication to proceed with stenting at this time as there are no symptoms to palliate and there is no cholangitis. Job ID: [id number] MTDD
--- NOTE | 2019-08-12 09:38 | PRG ---
DATE OF SERVICE: 08/11/2019 SUBJECTIVE: Mr. Chamberlain is without any complaints today except for some mild pain in his rectum when he goes to the bathroom. His sister is here today who he stays with. OBJECTIVE: VITAL SIGNS: Temperature is 98, pulse 82, blood pressure 101/67. GENERAL: He is resting in bed. He had his breakfast. MEDICATIONS: Include Tylenol, lactulose, meropenem, potassium, normal saline at 125. He has finished some albumin infusions. LABORATORY DATA: Sodium 138, potassium 3.4, BUN and creatinine down to 52 and 3.25 from 87 and 6 on admission. Yesterday, his LFTs were up with a bilirubin 37, AST 236, ALT of 93, alkaline phosphatase of 1353. Last INR was 2.4 on the . He did receive some vitamin K. ASSESSMENT: Metastatic stage IV colorectal cancer, complicated by hepatic dysfunction and biliary obstruction as well as renal failure. He has not been able to start on treatment yet secondary to these compounding factors. He does not want to go to hospice. I had a long discussion with the patient previously and the patient and his sister today about the advanced stage of his cancer, the fact that treatment will likely only be palliative and not curative and the barriers to treatment at this time including his renal failure, which is improving, and his biliary obstruction and hepatic dysfunction. It is difficult for me to know how much his hepatic dysfunction is from metastatic disease or how much is related to obstruction. However, his bile duct is dilated over 2 cm at this time. It seems he has prominent intra and extrahepatic ductal dilatation. He has some tumor burden in his liver, but not complete hepatic replacement. However, his ammonia was 900 when he came in and his INR was elevated, which would indicate some hepatic dysfunction, not related to biliary obstruction. Given that now he is stable, he does show no signs of cholangitis nor pleuritis, but if he is going to have any chance to be treated, his bilirubin will have to come down. I have talked with him about the option of ERCP and stent placement to see if we can get his bilirubin to come down with the caveat that it may not if all this is hepatic dysfunction and the caveat that he does have some risk of complications and if stents placed, will need to have it changed to a metallic stent if it is working in 3 to 4 months. As his renal function is improving, I think we can look into this. He and his sister agree that he does not want to go to hospice and wants to try to get to a point where he can have therapy with his renal function improving. We will see if we can get his bile level down with the stent. Plan ERCP. Risks, benefits, possible complications of endoscopy including perforation, reaction to medication, aspiration were explained to the patient and family including the risk of pancreatitis and the possibility that it may not substantially drop his bilirubin. This will be tentatively planned for tomorrow. If his INR is appropriate, we can start him back on some more vitamin K and we will get an INR in the morning as well as repeat labs. Job ID: [id number]
[2019-08-12] MEDS ORDERED: Acetaminophen/Codeine 30-300mg Tablet PO PRN (10:01)
[2019-08-12] MEDS ORDERED: Ondansetron HCl/PF 4 MG/2 ML Vial IVP PRN (10:39)
[2019-08-12] MEDS ORDERED: Morphine Sulfate 2 MG/ML SYRINGE SLOW IVP PRN (10:39)
[2019-08-12] MEDS ORDERED: Promethazine HCl 25 MG/ML VIAL SLOW IVP PRN (10:39)
[2019-08-12] MEDS ORDERED: Meperidine HCl/PF 25 MG/ML VIAL SLOW IVP PRN (10:39)
[2019-08-12] MEDS ORDERED: Promethazine HCl 25 MG/ML VIAL IM PRN (10:39)
[2019-08-12] MEDS ORDERED: PACU-Morphine 4MG/ML VIAL SLOW IVP PRN (10:39)
[2019-08-12] MEDS ORDERED: HYDROmorphone 2 MG/ML VIAL SLOW IVP PRN (10:39)
[2019-08-12] MEDS: Potassium Chloride 20 MEQ TAB PO SCH ×2 (12:18→18:04)
[2019-08-12 12:21] VITALS: BP 122/75; TEMP 97.8
[2019-08-12] MEDS ORDERED: Promethazine HCl 12.5 MG in Sodium Chloride 0.9% 50 ML IVPB PRN (12:31)
[2019-08-12] MEDS ORDERED: Promethazine HCl 12.5 MG in Sodium Chloride 0.9% 50 ML IVPB SCH (12:45)
[2019-08-12] MEDS: Acetaminophen/Codeine 30-300mg Tablet PO SCH ×2 (13:47→18:04)
--- NOTE | 2019-08-12 14:35 | RAD ---
ERCP: Two images are presented from ERCP procedure. INDICATION: Intraoperative imaging during ERCP. FINDINGS/IMPRESSION: The initial image is a marketing operations coordinator view with no abnormality. The second image shows radiopaque scope. The re is no opacification of the biliary ducts. POS: RIVER
--- NOTE | 2019-08-12 15:17 | OP ---
DATE OF PROCEDURE: 08/12/2019 PREOPERATIVE DIAGNOSES: 1. Metastatic rectal cancer, stage IV. 2. Renal failure, improving. 3. Hepatic infiltration with tumor. 4. Signs of biliary obstruction with dilated common bile duct to 2 cm. 5. Cholestatic liver function tests. PROCEDURE PERFORMED: Endoscopic retrograde cholangiopancreatography. Indocin was not given as the patient has creatinine of 3 down from 6. The patient is already on meropenem. ANESTHESIA: General. POSTPROCEDURE DIAGNOSIS: Unsuccessful endoscopic retrograde cholangiopancreatography. PROCEDURE IN DETAIL: The patient was informed of the risks, benefits, and possible complications of endoscopy including perforation, reaction to medication, and aspiration as well as pancreatitis as well as the risk that we may not able to get into his bile duct as stented as he has obstructing tumor with a very high bilirubin. Informed consent was obtained. The patient was brought to endoscopy suite, where he was intubated. He was placed in a prone position. We took care to not damage his teeth as he has several loose teeth in the top. The side-viewing duodenoscope was advanced to the esophagus, stomach, and second and third portions of the duodenum. The ampulla was very deformed with submucosal edema and mass effect. The ampulla entrance is pacing down and we could only get good visualization of the long position. Multiple attempts to cannulate were unsuccessful due to the common bile duct or the pancreatic was reliably accessed. After an hour and a half of attempt at cannulation, the procedure was aborted. The patient was brought to recovery room in stable condition. RECOMMENDATIONS: Consider transfer to tertiary care facility for another attempt at ERCP. If for insurance reasons he is not accepted to a tertiary care facility, we could ask Radiology to place a PTC. Job ID: [id number]
--- NOTE | 2019-08-12 17:07 | PDOC.EVN ---
Event Note - Event Note Event Note: Patient with unsuccessful ERCP this morning with GI - Dr. Haney/Caleb. Recommend transfer to [facility] to re-attempt ERCP with stenting. Called [facility] to initiate transfer. Discussed care with GI Dr. Nunes and Hospitalist Dr. Gonzalez. They accept the transfer. Awaiting, tele bed.
--- NOTE | 2019-08-12 17:54 | PRG ---
DATE OF SERVICE: 08/12/2019 SUBJECTIVE: Mr. Chamberlain is a 48-year-old black male with history of rectal cancer with metastasis to the liver and the lungs. Due to signs of biliary obstruction with dilated common bile duct to 2 cm, he underwent an ERCP with Dr. Haney. Attempt to stent was not successful. Down below was described to very deformed with submucosal edema and mass effect. Recommendation is either to transfer the patient to a tertiary care facility for another ERCP attempt or request radiology to do PTC. No new complaints today. We are following him up for his acute kidney injury which slowly improving over time. No complaints of chest pain or shortness of breath. OBJECTIVE: VITAL SIGNS: Blood pressure 122/75, heart rate 77, respiratory rate 16, temperature 97.8, pulse ox 98% on room air. GENERAL: Awake, alert, comfortable, not in distress. SKIN: Adequate turgor. HEENT: Pale conjunctivae. Anicteric sclerae. NECK: No neck mass. No carotid bruits. No JVD. CHEST: No deformities. LUNGS: Clear breath sounds. HEART: Normal sinus rhythm. No murmur. No gallops. No rubs. ABDOMEN: Globular, soft, nontender. No masses. EXTREMITIES: No edema. No deformities. MEDICATIONS: Medications of August 12, 2019, reviewed. LABORATORY DATA: Laboratories of August 12, 2019; white count 22.5, hemoglobin 7.1, sodium 140, potassium 3.7, chloride 108, carbon dioxide 22, BUN 43, creatinine 2.86, GFR 29 mL/minute. AST is 355, ALT is 90. Ammonia none done. Albumin 2.3. ASSESSMENT AND PLAN: 1. Acute kidney injury. Consider hemodynamically-mediated dysfunction. Continue current IV hydration. We will resume another day of albumin infusion 25 g IV q.6 for 4 doses. 2. Rectal cancer with metastasis to the liver and lungs. Supportive care. For eventual chemotherapy, per recommendation by his oncologist. 3. The patient elevated LFT. Attempt for stent placement by an ERCP was not successful. 4. Continue supportive care. Recheck basic metabolic panel and CBC in a.m. Job ID: [id number]
[2019-08-12] MEDS ORDERED: Ondansetron PF 4 MG/2 ML Vial ONE (18:03)
--- NOTE | 2019-08-13 13:04 | DIS ---
DATE OF ADMISSION: 08/07/2019 DATE OF TRANSFER: 08/12/2019 RESIDENT: Kiki Anton MD ADMITTING ATTENDING: Terri Gaines MD TRANSFER ATTENDING: Jens Martinez MD. CONSULTS: Case Management, Gastroenterology, Nephrology, Pulmonology, Palliative Care, and Physical Therapy. ACTIVE MEDS at time of transfer: Albumin, Meropenem, lactulose, bicarb in D5 PROCEDURES: ERCP on 08/12/2019. PRIMARY DIAGNOSES: 1. Hepatorenal syndrome secondary to metastatic cancer. 2. Renal failure secondary to acute tubular necrosis and hepatorenal syndrome. 3. Possible acute cholangitis. 4. Rectal adenocarcinoma stage IV. SECONDARY DIAGNOSES: None. HISTORY OF PRESENT ILLNESS/HOSPITAL COURSE: This is a 48-year-old male with a diagnosis of metastatic rectal adenocarcinoma, who presented to the ER for weakness. The patient had been followed by [facility] [facility] out of [place], [place]. The patient has poor insight into his medical diagnoses and was not able to provide much history. Denies any PMH. The patient did endorse a 10- pound weight loss recently as well as episodic constipation. The patient remained vitally stable throughout his stay. On exam, the patient was cachectic appearing. He was able to walk around the room and have full conversations. Pronounced scleral icterus was noted. The patient also had a rectal pain. The patient's initial labs of note were a white count of 20, hemoglobin 8.8, hematocrit 25.8, platelets 511. Coags showed a PT of 29.5, INR of 2.8. His T bilirubin was 30.7 , direct bilirubin was greater than 20, AST 218, ALT 96, alkaline phosphatase 1463. Initial ammonia was to great to count. The patient's BUN and creatinine were found to be 76 and 4.66. The patient was admitted to the [facility]. This patient's lab and physical exam findings were suspected to be from hepatorenal syndrome. It is thought that the patient's hepatorenal syndrome is likely due to his widely metastatic rectal adenocarcinoma. Nephrology as well as Gastroenterology and Pulmonology were consulted on the day of admission. Case Management as well as Palliative Care was consulted due to the patient's poor liver and kidney function in order to discuss code status and goals of care. The patient was started on a bicarb drip as well as albumin per Nephrology recommendations. The patient's creatinine did improve throughout his stay. On the day of transfer, the patient's BUN and creatinine were 43 and 2.86. For the patient's acute possible cholangitis, he was started empirically on vancomycin and Zosyn initially and this was changed to meropenem due to the patient's kidney injury. The patient had an abdominal ultrasound that showed evidence of cholelithiasis and cholecystitis. He had a very dilated common bile duct. CT abdomen did who mets to liver, lungs, adrenals as well as a mass at the ampulla. Initially, GI recommended palliative care with no intervention. Due to the patient's renal function improving, did attempt to do an ERCP on 08/12/2019, which was unsuccessful. recommended transferring the patient to [facility] for an ultrasound-guided ERCP to see if they could bypass the mass that was found at the ampulla. The patient's labs on the day of transfer were: T bili 36.4, AST 355, ALT 90, and alk phos 1334. An ammonia measured on 08/09 was > 925. As for the patient's rectal adenocarcinoma, a chest x-ray showed mild opacification in the left lung field. A CT abdomen and pelvis showed suspicious masses in the lungs, liver, adrenal glands, as well as colon. The patient follows with [facility] [place] [facility]. I was able to talk to the patient's oncologist whose name is Dr. Laurent. He was able to tell me that he recently saw the patient for the first time about a month ago. They had planned to do chemotherapy if his liver and renal functions were able to improve. I did pass the oncologist's number on to the [facility] staff as well to give him updates and if any additional information was needed. Case Management and Palliative Care were able to talk to the patient about goals of care along with his sister. They were considering hospice at the time of transfer. Per the patient's oncologist his prognosis could be up to 6mo, but with diagnosis of hepatorenal syndrome this could significant increase his mortality. [facility] Faculty - contracts director, Dr. Nunes and hospitalist, Dr. Gonzalez, they accepted the transfer. Discussed case in depth with these providers. They were given patient's oncologist number as well as our GI and nephro specialists. DISPOSITION: Stable. TRANSFER INSTRUCTIONS: 1. Location: [facility] in the [place]. 2. Diet: Renal, high protein with Suplena supplementation. 3. Activity: Ad giles with fall precautions. 4. Follow up with [facility] Facility. Job ID: [id number] [id number]
== END 2019-08-12 18:15 | disposition short-term general hospital (02) | DRG 441 ==
LOC: ERS 14:27 → ERHOLD 18:40 → IMCU/EMU 08-08 02:53 → SURG B 08-09 17:27
PROVIDERS: ADMIT Student in an Organized Health Care Education/Training Program; ATTEND Student in an Organized Health Care Education/Training Program
PROC: 0FJB8ZZ Inspection of Hepatobiliary Duct, Via Natural or Artificial Opening Endoscopic (ICD-10-PCS; principal; 2019-08-12)
DX: K76.7 Hepatorenal syndrome (principal); N17.0 Acute kidney failure with tubular necrosis; E43 Unspecified severe protein-calorie malnutrition; K83.1 Obstruction of bile duct; C78.7 Secondary malignant neoplasm of liver and intrahepatic bile duct; C20 Malignant neoplasm of rectum; C78.00 Secondary malignant neoplasm of unspecified lung; C79.70 Secondary malignant neoplasm of unspecified adrenal gland; D68.59 Other primary thrombophilia; Z68.1 Body mass index [BMI] 19.9 or less, adult; G93.40 Encephalopathy, unspecified; E87.2 Acidosis; K72.90 Hepatic failure, unspecified without coma; Z51.5 Encounter for palliative care; D63.0 Anemia in neoplastic disease; E86.0 Dehydration; Z87.891 Personal history of nicotine dependence
CPT/HCPCS: 36415; 71045; 74176; 74330; 76700; 80048; 80053; 80069; 80076; 80307; 81003; 81015; 82140; 82248; 82378; 82550; 82805; 83605; 83690; 83735; 84100; 84484; 85025; 85610; 85730; 86850; 86900; 86901; 87040; 87081; 93005; 96361; 96365; 96367; J2185; J2405; J2543; J2550; J3010; J3370; J3430; J3490; J7042; J7070; P9047